=== PATIENT | male | born 1980 | race African-American/Black ===

== ENCOUNTER 2017-12-29 09:25 | Emergency (ER) | payer OTHER ==
[2017-12-29] MEDS: ADACEL/BOOSTRIX VACCINE (DIPHTH/PERTUSS/ACELL/TETANUS)0.5ML SYR (90715) IM (09:27)
[2017-12-29] MEDS: LIDOCAINE 2% W/EPIN INJ 20ML **PRES FREE INJ (09:27)
== END 2017-12-29 10:17 | disposition home or self-care (01) ==
LOC: M ED 09:25
DX: S61.411A Laceration without foreign body of right hand, initial encounter (principal); W26.0XXA Contact with knife, initial encounter; Y92.018 Other place in single-family (private) house as the place of occurrence of the external cause; Z79.899 Other long term (current) drug therapy
CPT/HCPCS: 90715

== ENCOUNTER 2020-02-08 06:20 | Emergency (ER) | payer OTHER ==
[~2020-02-08] VITALS: Ht 177.8 cm; Wt 111.4 kg
[~2020-02-08 06:20] MED LIST: CLAR10CA3 PO; TRAZ-252 PO; ZOLO25TA PO; ZOLO50TA PO
[2020-02-08] MEDS ORDERED: OMEP-221 (06:33)
[2020-02-08 07:04] LABS: HEMATOCRIT 46.4 % (42.0-52.0); HEMOGLOBIN 15.4 g/dl (13.5-17.5); MEAN CORPUSCULAR HEMOGLOBIN 28.4 pg (27.0-33.0); MEAN CORPUSCULAR HGB CONC 33.2 g/dl (32.0-36.5); MEAN CORPUSCULAR VOLUME 85.5 fl (80.0-96.0); PLATELET COUNT, AUTOMATED 296 10^3/uL (150-450); RED BLOOD COUNT 5.43 10^6/uL (4.30-6.10); WHITE BLOOD COUNT 7.6 10^3/uL (4.0-10.0)
[2020-02-08] MEDS ORDERED: LORazepam 2 MG TAB PO PRN (07:15)
[2020-02-08 07:20] LABS: AMPHETAMINES LEVEL URINE POSITIVE (NEGATIVE); BARBITURATES URINE NEGATIVE (NEGATIVE); BENZODIAZEPINES URINE NEGATIVE (NEGATIVE); CANNABINOIDS URINE NEGATIVE (NEGATIVE); COCAINE METABOLITE URINE POSITIVE (NEGATIVE); METHADONE URINE NEGATIVE (NEGATIVE); OPIATES URINE NEGATIVE (NEGATIVE); PHENCYCLIDINE URINE NEGATIVE (NEGATIVE)
[2020-02-08 07:34] LABS: ACETAMINOPHEN LEVEL < 2.0 UG/ML (10.0-30.0); ALBUMIN 4.1 GM/DL (3.2-5.2); ALT/SGPT 55 U/L (12-78); BILIRUBIN,DIRECT 0.1 MG/DL (0.0-0.2); BILIRUBIN,TOTAL 0.4 MG/DL (0.2-1.0); BLOOD UREA NITROGEN 10 MG/DL (7-18); CALCIUM LEVEL 8.7 MG/DL (8.5-10.1); CARBON DIOXIDE LEVEL 23 MEQ/L (21-32); CHLORIDE LEVEL 104 MEQ/L (98-107); CREATININE FOR GFR 1.02 MG/DL (0.70-1.30); ETHYL ALCOHOL (ETHANOL) 0.263 % (0.000-0.010); GLOMERULAR FILTRATION RATE > 60.0 (>60); GLUCOSE, FASTING 93 MG/DL (70-100); POTASSIUM SERUM 3.7 MEQ/L (3.5-5.1); SALICYLATE LEVEL 2.3 MG/DL (5.0-30.0); SODIUM LEVEL 139 MEQ/L (136-145); THYROID STIMULATING HORMONE 0.854 uIU/ML (0.358-3.740); TOTAL PROTEIN 8.1 GM/DL (6.4-8.2)
[2020-02-08] MEDS: THIAMINE 100 MG TAB PO SCH ×2 (08:32→21:00)
[2020-02-08] MEDS ORDERED: MULTIVITAMINS/MINERALS THERAP 1 TAB PO SCH (09:00)
[2020-02-08] MEDS ORDERED: FOLIC ACID 1 MG TAB PO SCH (09:00)
--- NOTE | 2020-02-08 19:35 | ECGEPIP ---
[facility] - ED Test Date: 2020-02-08 Pat Name: RAFA JIANG Department: Room: - Gender: Male Studio Grip: JTarsha : 1980 Requested By: Haris Meraz Order Number: [id number] Reading MD: Haris Meraz Measurements Intervals [place] Rate: 99 P: 43 ND: 140 QRS: -6 QRSD: 92 T: 11 QT: 340 QTc: 438 Interpretive Statements SINUS RHYTHM NONSPECIFIC ST T WAVE CHANGES CW 03/31/[address] T WAVE CHANGES Electronically Signed on 02-08-2020 19:35:20 EDT by Haris Meraz
[2020-02-08 21:26] VITALS: BP 142/98
== END 2020-02-08 21:27 ==
LOC: M ED 06:20
DX: R45.851 Suicidal ideations (principal); F32.9 Major depressive disorder, single episode, unspecified; Z91.5 Personal history of self-harm; F17.210 Nicotine dependence, cigarettes, uncomplicated; F19.10 Other psychoactive substance abuse, uncomplicated; F10.10 Alcohol abuse, uncomplicated; F43.10 Post-traumatic stress disorder, unspecified; Z79.899 Other long term (current) drug therapy
CPT/HCPCS: 36415; 80048; 80076; 80307; 84443; 85027; 93005; 99284; G0480

== ENCOUNTER 2020-11-10 22:14 | Inpatient (IN) | payer OTHER ==
[~2020-11-10] VITALS: Ht 177.8 cm; Wt 225.8 kg
[~2020-11-10 22:14] MED LIST changes: +OMEP-221
--- OUTSIDE RECORDS SUMMARY | 2020-11-10 22:18 | CCD ---
Author Author [facility] Organization [facility] Address Unknown Phone Unavailable Care Team Providers Care Operational Risk Analyst Name Role Phone Edinson COATS MD Unavailable Unavailable Edinson COATS MD Unavailable Unavailable Edinson COATS MD Unavailable Unavailable Edinson COATS MD Unavailable Unavailable Edinson COATS MD Unavailable Unavailable Edinson COATS MD Unavailable Unavailable Edinson COATS MD Unavailable Unavailable Edinson COATS MD Unavailable Unavailable Edinson COATS MD Unavailable Unavailable Edinson COATS MD Unavailable Unavailable Edinson COATS MD Unavailable Unavailable Edinson COATS MD Unavailable Unavailable Edinson COATS MD Unavailable Unavailable Edinson COATS MD Unavailable Unavailable Edinson COATS MD Unavailable Unavailable Edinson COATS MD Unavailable Unavailable Edinson COATS MD Unavailable Unavailable PAULY R LEAH BRAVO Unavailable Unavailable PAULY R AHRITIKA BRAVO Unavailable Unavailable ELIZONDO, CATHOLIC MD Unavailable Unavailable ELIZONDO, CATHOLIC MD Unavailable Unavailable ELIZONDO, CATHOLIC MD Unavailable Unavailable ELIZONDO, CATHOLIC MD Unavailable Unavailable ELIZONDO, CATHOLIC MD Unavailable Unavailable ELIZONDO, CATHOLIC MD Unavailable Unavailable ELIZONDO, CATHOLIC MD Unavailable Unavailable ELIZONDO, CATHOLIC MD Unavailable Unavailable Re-disclosure Warning The records that you are about to access may contain information from federally-assisted alcohol or drug abuse programs. If such information is present, then the following federally mandated warning applies: This information has been disclosed to you from records protected by federal confidentiality rules (42 CFR part 2). The federal rules prohibit you from making any further disclosure of this information unless further disclosure is expressly permitted by the written consent of the person to whom it pertains or as otherwise permitted by 42 CFR part 2. A general authorization for the release of medical or other information is NOT sufficient for this purpose. The Federal rules restrict any use of the information to criminally investigate or prosecute any alcohol or drug abuse patient.The records that you are about to access may contain highly sensitive health information, the redisclosure of which is protected by Article 27-F of the [facility] Public Health law. If you continue you may have access to information: Regarding HIV / AIDS; Provided by facilities licensed or operated by the [facility] Office of Mental Health; or Provided by the [facility] Office for People With Developmental Disabilities. If such information is present, then the following [facility] mandated warning applies: This information has been disclosed to you from confidential records which are protected by state law. State law prohibits you from making any further disclosure of this information without the specific written consent of the person to whom it pertains, or as otherwise permitted by law. Any unauthorized further disclosure in violation of state law may result in a fine or fci sentence or both. A general authorization for the release of medical or other information is NOT sufficient authorization for further disc losure. Allergies and Adverse Reactions Type Description Substance Reaction Status Data Source(s ) Drug Class NO KNOWN ALLERGIES NO KNOWN ALLERGIES [facility] Family History Family Member Name Family Member Gender Family Member Status Date o f Status Description Data Source(s) Unknown Unknown Problem [facility] ([facility] Unknown Unknown Encounters Encounter Providers Location Date Indications Data Source(s ) Inpatient Attender: MARIE Lee nder: LEAH COATS MDAdmitter: LEAH COATS MDReferrer: LEAH COATS MD [id number] 02/08/2020 12:00:00 AM EDT - 02/12/2020 01:06:00 PM EDT sucidial Ideations [facility] sucidial Ideations Patient discharged. Medications Medication Brand Name Start Date Product Form Dose Route Admi nistrative Instructions Pharmacy Instructions Status Indications Reaction Description Data Source(s) Ergocalciferol 82991 UNT Oral Capsule Vi tamin D (Ergocalciferol) 1.25 MG (66396 UT) Oral Capsule (ERGOCALCIFEROL) Vitamin D (Ergocalciferol) 1.25 MG (5000 0 UT) Oral Capsule (ERGOCALCIFEROL) 02/18/2020 12:00:00 AM EDT 82765 U Ora l active Take 1 capsule by mouth every 7 (seven) days [facility] Thiamine 100 MG Oral Tablet Thiamine HCl 100 MG Oral T ablet (B-1) Thiamine HCl 100 MG Oral Tablet (B-1) 02/13/2020 12:00:00 AM EDT 100 mg Oral active Take [facility]Beta Carotene Oral Tablet 7529-7043-03 02/13/2020 12:00: 00 AM EDT 1 {tbl} Oral active Take 1 tablet by mouth d [facility] Folic Acid 1 MG Oral Tablet Folic Acid 1 MG Oral Table t (FOLVITE) Folic Acid 1 MG Oral Tablet (FOLVITE) 02/13/2020 12:00:00 AM EDT 1 mg Oral active Take 1 tablet by mouth daily [facility] Hydrochlorothiazide 12.5 MG Oral Tablet hydroCHLOROthiazide 12.5 MG Oral Tablet (HYDRODIURIL) hydroCHLOROthiazide 12.5 MG Oral Tablet (HYDRODIURIL) 02/13/2020 12:00:00 AM EDT 12.5 mg Oral active Take 1 tablet by mouth daily [facility] Hydroxyzine Hydrochloride 50 MG Oral Tab let hydrOXYzine HCl 50 MG Oral Tablet (ATARAX) hydrOXYzine HCl 50 MG Oral Tablet (ATARAX) 02/12/2020 12:00: 00 AM EDT 50 mg Oral active Take 1 tablet by mouth every 6 (six) hours as needed for Anxiety (Sleep) for up to 10 days [facility] Ergocalciferol 36992 UNT Oral Capsule vi tamin D (ERGOCALCIFEROL) capsule 50,000 Units vitamin D (ERGOCALCIFEROL) capsule 50,000 Units 2019 09:15:00 AM EDT 25376 U Oral active 50,000 U nits, Oral, Every 7 days, First dose on Mon02/11/20 at 0915, For 30 days [facility] Medication administered onsite Hydrochlorothiazide 25 MG Oral Tablet hy drochlorothiazide (HYDRODIURIL) tablet 12.5 mg hydrochlorothiazide (HYDRODIURIL) tablet 12.5 mg 02/08 11:30:00 AM EDT 12.5 mg Oral active 12.5 mg, Oral, Daily Standard, First dose on 02/09/20 at 1130, For 30 days [facility] Medication administered onsite Sertraline 50 MG Oral Tablet sertraline (ZOLOFT) table t 50 mg sertraline (ZOLOFT) tablet 50 mg 02/09/2020 09:00:00 AM EDT 50 mg Oral active 50 mg, Oral, Daily Standard, First dose on 02/09/20 at 0900, For 30 days [facility] Medication administered onsite Folic Acid 1 MG Oral Tablet folic acid (FOLVITE) table t 1 mg folic acid (FOLVITE) tablet 1 mg 02/09/2020 09:00:00 AM EDT 1 mg Oral active 1 mg, Oral, Daily Standard, First dose on 02/09/20 at 0900, For 5 doses [facility] Medication administered onsite multivitamin tablet 1 tablet [id number] 02/09/2020 09:00:00 AM EDT 1 {tbl} Oral active 1 tablet, Oral , Daily Standard, First dose on 02/09/20 at 0900, For 30 days [facility] Medication administered onsite Thiamine 100 MG Oral Tablet thiamine (B-1) tablet 100 mg thiamine (B-1) tablet 100 mg 02/09/2020 09:00:00 AM EDT 100 mg Oral active 100 mg, Oral, Daily Standard, First dose on 02/09/20 at 0900, For 30 days [facility] Medication administered onsite pantoprazole 40 MG Delayed Release Oral Tablet pantoprazole (PROTONIX) EC tablet 40 mg pantoprazole (PROTONIX) EC tablet 40 mg 02/09/2020 12:00:00 AM E DT 40 mg Oral active 40 mg, Ora l, Before Breakfast, First dose (after last modification) on 02/09/20 at 0000, For 30 days [facility] Medication administered onsite Trazodone Hydrochloride 50 MG Oral Tablet trazodone (D ESYREL) tablet 50 mg trazodone (DESYREL) tablet 50 mg 02/09/2020 12:00:00 AM EDT 50 mg Oral active 50 mg, Oral, Nightly, First dose on 02/09/20 at 0000, For 30 days [facility] Medication administered onsite Hydroxyzine Hydrochloride 50 MG Oral Tablet hydrOXYzin e (ATARAX) tablet 50 mg hydrOXYzine (ATARAX) tablet 50 mg 02/08/2020 11:43:01 PM EDT 50 mg Oral active 50 mg, Oral, Every 6 hours PRN, Anxiety, Sleep, Starting 02/08/20 at 2343, For 30 days [facility] Medication administered onsite Aluminum Hydroxide 40 MG/ML / Magnesium Hydroxide 40 MG/ML / Simethicone 4 MG/ML Oral Suspension Alum & Mag Hydroxide-Simeth (MAALOX PLUS) 200-200-20 MG/5ML suspension 30 mL Alum & Mag Hydroxide-Simeth (MAALOX PLUS ) 200-200-20 MG/5ML suspension 30 mL 02/08/2020 11:42:43 PM EDT 30 mL Oral a ctive 30 mL, Oral, Every 4 hours PRN, Heartburn, Indigestion, Starting 02/08/20 at 2342, For 30 days
MDD 4
[facility] Medication administered onsite Magnesium Hydroxide 80 MG/ML Oral Suspen jane magnesium hydroxide (MILK OF MAGNESIA) 400 MG/5ML suspension 30 mL magnesium hydroxide (MILK OF MAGNESIA) 4 00 MG/5ML suspension 30 mL 02/08/2020 11:42:39 PM EDT 30 mL Oral active 30 mL, Oral, Daily PRN, Constipation, Starting 02/08/20 at 2342, For 30 days
If serum creatinine > 2 notify provider before administering.
[facility] Medication administered onsite acetaminophen (TYLENOL) tablet 650 mg 02/08/2020 11:42:32 PM EDT 650 mg Oral active [Order 1 Start ] Name: acetaminophen (TYLENOL) tablet 650 mg Signed Summary: 650 mg, Oral, Every 4 hours PRN, Mild Pain (Pain Scale Score 1-3), Headaches, Starting 02/08/20 at 2342, For 30 days
MDD 4
[Order 1 End] [Order 2 Start] Name: acetaminophen (TYLENOL) tablet 650 mg Signed Summary: 650 mg, Oral, Every 4 hours PRN, Moderate Pain (Pain Scale Score 4-6), Starting 02/08/20 at 2342, For 30 days
MDD 4
[Order 2 End] [Order 3 Start] Name: acetaminophen (TYLENOL) tablet 650 mg Signed Summary: 650 mg, Oral, Every 4 hours PRN, Severe Pain (Pain Scale Score 7-10), Starting 02/08/20 at 2342, For 30 days
MDD 4
[Order 3 End] [facility] Medication administered onsite Insurance Providers Payer name Policy type / Coverage type Policy ID Covered democrat ID Covered democrat's relationship to bertrand Policy Bertrand Plan Information MVP [id number] [id number] SP [id number] [employer] [id number] SP [id number] MVP I [id number] Self [id number] [employer] [id number] SP [id number] [employer]ARE [id number] SP [id number] VALUE OPTIONS (MVP) [id number] SP [id number] [facility] Health Care Commercial [id number] Self [id number] MVP Commercial Self [employer] HE[employer] C[employer] O [id number] S [id number] MVP Health Care Commercial Self [place] PHY [id number] SP [id number] SELF PAY UNAVAILABLE SP UNAVAILA BLE Problems, Conditions, and Diagnoses Code Display Name Description Problem Type Effective Dates Data Source(s) sucidial Ideations sucidial Ideations Diagnosis 0 11:32:45 PM EDT [facility] Surgeries/Procedures Procedure Description Date Indications Data Source(s) 25 HYDROXY INCLUDES FRACTIONS IF PERFORMED VITAMIN D 25 HYDROXY , TOTAL Routine 02/10/2020 11:09 AM EDT 02/10/2020 03:09:00 PM EDT [facility] Results ID Date Data Source [id number] [facility] Interpretation Code Description Data Amaris rce(s) Supporting Document(s) Discharge Summary [facility] BKFZVn4eZuEIApOb13/JQSwlOHOrm3EyOPxaNNy8UXzpYGFwZ3YrARC4uN4xHQG6LJwGPyLcDkGpWFT8 [facility] [file] D/Rpu4sOx+z5aNTcmS8ucugEDSDr/CHAIRMAN AND CEO+Sy5Y4gl7Rk [file] AwNzgwMyAwMDAwMCBuDQowMDAwMDExMzkwIDAwMDAw FI8HFcMqEOKhIDB1GDAmNCHsZCPxkz4OLKBsIXFbEYVjYnDtADJaTCInXAhnZZUpVFW9BsXsEQQqZQFr HE8FRcHhAUKyLCi0JMSwXZFaYQZrrx9BMJDiRUShBNC4NwStEYLdPYSpGJhsQKCxIUWhCkrvKAXgWXEq UT2RHlViWYEhWsT6YVdlBBWbLBEdbh8TCTDsXYJpPg VxJHNrNZUiKOFdRXyyDTMoPVE4EdPgQQSjWAScFZ6QMwJlJPStNlW2UsQgFYJpAFRwvv7SMDXaJHIwSS M4RiEdQBEtIATdRPvcOPToCQE0JDN4VDYpXKFcVO8ZFhVvCQAaHiNsQjGkOBByAJJknd7LISIoQCRqAE I0VIAsZSAwNMZiTXbvPZRvQWG1Sxc1CALuTVNfEU5L PkPdTYGhJalmMINpCWBjUFRypm3GGBDzTRYqKGT3EwAmXZEwAYPxEVsyHDXeMCDqNdUhMMPxYQBkJP3Z XrHaNTZsMNH4QIagKTDvZHTgrn7UKRLiXSI0LSLaDwTmIWEcTMBzIKvhSAJjBSAuKMbuROJvOYKkEP0Q VnAcRHLjUQF7TTZzIQAzTSYpmc0EBXNaPHI8GHb2UU GwZADdDADuAKalPVKaDFEySaC3IKGzEYMzKD4IRoHwQLNmPVV5SHYpYPXqOGWezf5FZQUqAJO7Btq8Cp TsHJOtUIPiCVosKALuJOH8UQQsUTLzUIFiJQ4PRaGkMJBsCHQzBfsrTOBoMQPabg8OJPXfBMX4HVEdFl EuTPRxPNYoWBbvLKAuTNF4EANyIRXtUJWnDZ1VQwTc PJFzKQD2TGxsCGPtUCRljh5WSQHaLHI0VbDrJVAbJKLzVVYyBEnrBSExNIT5YqF3IJKhIRNdZG8CCiVx VPIxKGI2IXnyZWBxMBQfzg5OGVIuTRI3APv2MdGoXJYaFFOvLSdmESRsFIMzRRp7ZEDlHRBsRZ6QQwBv SXTlWtDlNHOjSAOxIJSefw5VHYFdRHR8VrC6YgToHB BkTGXvUJxhDHMlUXEyWvg8ZVPuOHNpUD6HXiYbKTVuQyB3NGUrPHAbINJoyo2TZDHyPNB0QaG5IZZoKJ WjUPYyJElkRQXjENCwSzn0XPJgJEDyLY6MOySiIUYaDlDiYAChENQpJREgvc9GTEEcZPO6SQJdBBQgCN YxWPGpRNttLBZaFRZ7UbA5DCGmDIWrUZ3SOhMyXVFx QeJfGIvvMXFcCIBhen9KPCJxGOJ1IoU8QMIfKLEqATUgKTluQJKrHQR3KdB1GSBqSCIgPC1MMgQzYFNy NnX1JANgBVGpFVEjqw8IoECqyTkhdv6WGZxTUf9EnQveTFB9XIuoRj8pfGK7IUMdHAFPHa0DxwTtDOOu AOBTBAotEFZkAVF8FNPoTYt8LIDfY7KpTOIeXiI8LK ipIFLcGnO2HmJmNqB1VTVkNlK7FJYhEyP1BhP6QPClXaw7K1QqRRHmJLfnDRW+AK9lJOl+Pe0Gw4Dtxc Y8fsCbWCf4NzU3OF3JHXIJI5GKYx== ID Date Data Source [id number] 02/10/2020 01:46:40 PM EDT [facility] Name Value Range Interpretation Code Description Data Amaris rce(s) Supporting Document(s) Calcidiol [Mass/volume] in Serum or Plasma 13 ng/mL >30 L [facility] ID Date Data Source [id number] 02/09/2020 04:26:30 PM EDT [facility] Name Value Range Interpretation Code Description Data Amaris rce(s) Supporting Document(s) History and Physical [facility] PGAXCv3pBbPZIqXf40/WUHqbKVBjf9NjTLurOZb9NJmtTESwA3WcNJA9vF6oEBJ9GQuXRhOwQbYgLBJw lbm [file] NOU9syhCvOrl2y5JMpC3a+7RQ507RAZnMPWLcFAxNTXoq+8PPKAYIRKKr9+zatfabW5/manager labor relations/MW9jBx3N [file] AgICAgICAgICAgICAgICAgICAgICAgICAgICAgICAgICAgICAgICAgICAgICAgICAgICAgICAgICAgIC HwRVOxHYKxIDCgSXMxWY5TTDBsOVJmYEXiYLDwTSWf ICAgICAgICAgICAgICAgICAgICAgICAgICAgICAgICAgICAgICAgICAgICAgICAgICAgICAgICAgICAg LPQeRUOhWZBvAZRjEIEiJAOhSNWeRCFwSY5QTPSrNNPxLRQaBGTlWRPnSZWmABOoBIHfDDIjYWFmVLJz ICAgICAgICAgICAgICAgICAgICAgICAgICAgICAgIC DbIQRbRPZsCUQdQPHpCWRpIDXpVHOaHUZkNIUuLPEfWRRsUL1SZKTsXIYvQPSsVZZuALRqFVPeAWSeJH AgICAgICAgICAgICAgICAgICAgICAgICAgICAgICAgICAgICAgICAgICAgICAgICAgICAgICAgICAgIC AfQCLgPAAsYNMmHWElAWDqXK0GSMHoFBEeFUJoSWXx ICAgICAgICAgICAgICAgICAgICAgICAgICAgICAgICAgICAgICAgICAgICAgICAgICAgICAgICAgICAg JGAyGAOxILCfDVIxOSPfLGDlKWEwAMVvYIHpVA9RCBYjSILzKJDvXOGxHSTcJRDhNGVwBSTqHPLhBSLq ICAgICAgICAgICAgICAgICAgICAgICAgICAgICAgIC IpLYNnBFOaGJEfEBYuNJRqOLWaNLCkLWHcYAMcAYPkFAByOQJgEW7XULTkVSNrFOXoZNOkAHSlVWJfIE AgICAgICAgICAgICAgICAgICAgICAgICAgICAgICAgICAgICAgICAgICAgICAgICAgICAgICAgICAgIC VbPZWxRKPoKSOaYMNgBVPrRONjTR1YPBSvVTCjZRMp ICAgICAgICAgICAgICAgICAgICAgICAgICAgICAgICAgICAgICAgICAgICAgICAgICAgICAgICAgICAg EFZoMBHyYAAbJRTgRKPrYQSdDMRzATCjNEEdSFMqZP8SWSKoKGUjYVNmBQPoBFSmZKFsDVLkIRGsLLZi ICAgICAgICAgICAgICAgICAgICAgICAgICAgICAgIC OrBTJpCECsSOXxFIXjHUBuUICjWGXeWGMlDGMnMZCeUJGsMPLiXHOfHO4SEWZnGHXuJRIhFLHrVVZaUX AgICAgICAgICAgICAgICAgICAgICAgICAgICAgICAgICAgICAgICAgICAgICAgICAgICAgICAgICAgIC HoXWMbTPTbEQVrHRVwDPGnSMLoUEKqZL6FZY47kCOq y4D2BHWnZU8gwyr/Nr3APNygwoHkcLXzDQ2IJgGhMV2gnm4FRwIfNU0tim8KLPrYRtEeO2U3tCBbBYCq TYRFXrRwM56mGRccTh15IYnaOMGnGmGsNSi2Xq3LTbVoB7wmOKNgBnF2FVNzVnD4KOWtDdQ1UPBfGvMu ZQIbTBNnCHPkMUDNTHK6JDCzLxGjQmZdVKOnIHylBX ZFCLPhNQTzLiRgGcLjEILkLN7CDJBuU630bnEyAFKENn5+CDdgwiLiVknRRxD3QGBwe2WrKQa7LD2MXC KxNfngw5TfJYIbLHJZUFjrHF9UMAM1FMA8YKWsDx2CPREsI803onKoDH0VMx2AUbErRU7ary5HHGKtVX XmGvcADlv9ZIllHG0GkRBbTAeACpFeFpbrYX7ukOWU ULVhGJWfZK4JUIN4VCTeVy3vHRYoFMMbYlD6PFRFRU0OGXWqAEUvnQIjKQKiCJVBCP8YJSjnFTK9DQFr ceTenYIrRXyoBE0NRHKctqAdWOOpDUDIEVj+Yf4PHF3km9MpQGx0CvReJF0ljc1KFQdLPmLfJ1H7dNHn L9H5OLnzKl5CLZYvMQBzZBGbBNFOVVvrVW8HUI1bjc I8KD0HiRAzYXKmXRRieMAiYBm5Z68erPIxHVheLD1SIAQ+Tereza+Nu1AUXEbNYYoXOCwQrTtTAPONoJyD0 GxN8YFm0MeE4CrCV45uYbvwwBgYLfkGD1ROF3fWELgYIQPKJ4LhVXyiX2tneH2KZNqVHJBKrKmH21fsK BrHWSoYTLdOHZiJq3QZJDzZ2EeszFppIhhlfFaTVSv GMQAOM5YCTyshqTctILotAclTY59cRszNS5LMo1TCgAfGD1oxm5KwEKiIs6PZTT7Mu7MQGFpIOCmTYBc CGS5PALfWsEmAIchZGGjCLAvACM6QXJeASXoFR9GIyCvORJbYBl7PviuVPHkWNGmhv7UYIUpEMD0XJCh KrEcLAYdJEMiFGmcRBYiHPEdIDU1CHJrWJSnJD7JGl WeBTHpJUF1MUCrPFEyHVMshq2CEDJtCDWfZdM5WBAtFPQiMWMoTOxbGLTaTKY4TGwbRDMaOHMpQD9ZSx OzPKEtFLU8AFYsKDXdPCMnxt8FDAOpKWOmYNU3OVNlKNMxUIIvJDiuCRNjUIH4PGC1BGIsLYHiHB3QGb GbFXTyRJS4WFqyUZPfCPPfxw9LSSIzSNFgOqlxBpBz JQOmYWBoTQztSANfNGJ7BOXqQABsMWKdNG8LUoXwUHBrQGRiFsucGFDzTDAtgl1LHXFwUKSwFLW9BIXc QZWmHAAdFFliZABjKCHrOyj7HLEuLTXnXI3VWrUyFSJaLzN9PZpgIOIlIBBcjo7JYKCoYYSqICZ7UXZd MXBgRDCqGHluMKZxSAY7XfE4YFWxPFUvJP0TWcDhRV YlTvp3IpAxRUIoHPImuy9PXYWuBJFrXhO0ADDmMPOhVPUgNJarRRXcPMLvBcAaPCCuZYVpHK6HKfRbEB XoIlVyLEPhRFFhFDFulr7WRDOwFUSmMhCwPpPbGCPrPAYbNKviMCVvDEK0EiJ1WDAfXUWvOW4PXeBpQE IbWaP1WkRhYGLdEDOapj1KHIEfZSGhDPa7ZfHkONGj ALYxSXheBXWoKKL0BzJ7UBOzYRQtNA2XLeYbGNEmOyI0CFrdFRCpVEPzdf3HKUEgYGUtIqD0STBjOZJn DIEkTWjfLSKdGZJ6ILE1RUGpCWQvZV9HJqAfWBNbLgssYOQvINPgPODnkc3HZRXdDQDhQqUdPMArMAMs YNIbLHogXCKpTWI5TAL3LEUmVTWmET3PZfBuZWXiMD oyMIOwVIYjWQEkna8LQFRtOGK4TVO5DRXxBZWaCXZpMUuoHLAgMYQ5EjQ3ENQpAKQnAS5MJrNxBZMbFP j6PGCaKPZgNYWokc7LXLOuEJP1AKbeBEVjTLLtJLCkLSjqJODjZUEzRFZ9MJCpORYvJL5UBbBiWCUwTG IaLPXzCLJtTIXvnm4DCXQrSCB1JlC8IMSwHIXySLUe BWpfSBWlEBBbLbEwPFCvGVFmBE9XJnQbWNGxPPP5YrKlLDHiYMWsri6BNCFtWUU8McG7INRlQYLqGREj MKbjOZErNZU8MpFaMYTaCPDuVA9TEyIfZLMiJUl5HGknUKRrYJVqgb1TTBVbLDA9EMO3UEBbRVYzCTQy TYvuRDPtJFJ8RvE6MYUxFFGeYV8NEeYhTXWlRLw9Jv khXIBkYVYyvl7WIHAsVYA8ETK9JZTfTFDaFQLjTUmdCAGaCWF6JOY0GGBwWGPbAO0XMcUgNIWwAAauFY WwTRUdUDXjit8BPTJgRWA9ECi3SwIfKHGdJQLnKZomWTBkXSVjKTZ1XKQjRLWlXE4BUePwTOWdLhAbPM XaTKGgLERxkd9GmKUmvOsopb0NWOuYQg2RcZzxSQK9 HFbbHu5etVT1DqOcASDSVl2ErcLkDSIjPEAFPCskJHPgLJCvHkA5LRA3HbtwQUT9CTW7UeY1ETt3DPMi EMIyOEM8WbU2ENLtJTerWxbwUGYhUSvaUTMrBMolGrY6LnUlOdHpTPy+YD6zYMl+Wn9Sb9EyazE8niYg ZNq0GHI2RN8YBZZER5AMLm== ID Date Data Source [id number] 02/09/2020 04:26:15 PM EDT [facility] Name Value Range Interpretation Code Description Data Amaris e(s) Supporting Document(s) History and Physical [facility] BAOHLw9zMwFWDyLh37/XRPszJIYej7HaYQpqJJr0LWbsMZGvK6JiUXK1qF4wCFT7JZlBDlEtQdMaVMRq m [file] JqSOewWfZ1TD5AHYTNW0MVDm== Procedure Social History Code Duration Value Status Description Data Source(s ) Alcohol intake 02/09/2020 12:00:00 AM EDT Current drinker of al cohol (finding) completed Current drinker of alcohol (finding) [facility] Smoking 02/09/2020 12:00:00 AM EDT Unknown if ever smoked comp leted Unknown if ever smoked [facility] Vital Signs ID Date Data Source [id number] 02/12/2020 07:35:41 PM EDT [facility] Name Value Range Interpretation Code Description Data Source(s) WEIGHT RECORDED 231.1 lb 231.1 lb [facility] Body height Measured 70 in 70 in [facility]st [facility] Patient Treatment Plan of Care Planned Activity Planned Date Details Description Data Source (s) Ergocalciferol 58261 UNT Oral Capsule 02/18/2020 12:00:00 AM EDT [facility] Thiamine 100 MG Oral Tablet 02/13/2020 12:00:00 AM [facility] Tab-A-Ainyah/Beta Carotene Oral Tablet 02/13/2020 12:00:00 AM [facility] Hydrochlorothiazide 12.5 MG Oral Tablet 02/13/2020 12:00:00 AM [facility] Folic Acid 1 MG Oral Tablet 02/13/2020 12:00:00 AM [facility] Hydroxyzine Hydrochloride 50 MG Oral Tablet 02/12/2020 12:00:00 AM [facility] Hydroxyzine Hydrochloride 50 MG Oral Tablet 02/08/2020 11:43:01 PM [facility] Aluminum Hydroxide 40 MG/ML / Magnesium Hydroxide 40 MG/ML / Simethicone 4 MG/ML Oral Suspension 02/08/2020 11:42:43 PM [facility] Magnesium Hydroxide 80 MG/ML Oral Suspension 02/08/2020 11:42:39 PM [facility] acetaminophen (TYLENOL) tablet 650 mg 02/08/2020 11:42:32 PM [facility]
[2020-11-10] MEDS ORDERED: OMEP-221 PO (22:37)
[2020-11-11 00:23] LABS: HEMATOCRIT 44.8 % (42.0-52.0); HEMOGLOBIN 14.4 g/dl (13.5-17.5); MEAN CORPUSCULAR HEMOGLOBIN 27.3 pg (27.0-33.0); MEAN CORPUSCULAR HGB CONC 32.1 g/dl (32.0-36.5); PLATELET COUNT, AUTOMATED 339 10^3/uL (150-450); RED BLOOD COUNT 5.27 10^6/uL (4.30-6.10); WHITE BLOOD COUNT 4.8 10^3/uL (4.0-10.0)
[2020-11-11 00:45] LABS: AMPHETAMINES LEVEL URINE NEGATIVE (NEGATIVE); BARBITURATES URINE NEGATIVE (NEGATIVE); BENZODIAZEPINES URINE NEGATIVE (NEGATIVE); CANNABINOIDS URINE NEGATIVE (NEGATIVE); COCAINE METABOLITE URINE NEGATIVE (NEGATIVE); METHADONE URINE NEGATIVE (NEGATIVE); OPIATES URINE NEGATIVE (NEGATIVE); PHENCYCLIDINE URINE NEGATIVE (NEGATIVE)
[2020-11-11 01:02] LABS: ACETAMINOPHEN LEVEL < 2.0 UG/ML (10.0-30.0); ALBUMIN 3.7 GM/DL (3.2-5.2); ALT/SGPT 33 U/L (12-78); BILIRUBIN,DIRECT 0.1 MG/DL (0.0-0.2); BILIRUBIN,TOTAL 0.3 MG/DL (0.2-1.0); BLOOD UREA NITROGEN 6 MG/DL (7-18); CALCIUM LEVEL 8.6 MG/DL (8.5-10.1); CARBON DIOXIDE LEVEL 25 MEQ/L (21-32); CHLORIDE LEVEL 114 MEQ/L (98-107); CREATININE FOR GFR 1.06 MG/DL (0.70-1.30); ETHYL ALCOHOL (ETHANOL) 0.144 % (0.000-0.010); GLOMERULAR FILTRATION RATE > 60.0 (>60); GLUCOSE, FASTING 79 MG/DL (70-100); POTASSIUM SERUM 3.8 MEQ/L (3.5-5.1); SALICYLATE LEVEL < 1.7 MG/DL (5.0-30.0); SODIUM LEVEL 147 MEQ/L (136-145); THYROID STIMULATING HORMONE 0.276 uIU/ML (0.358-3.740); TOTAL PROTEIN 7.2 GM/DL (6.4-8.2)
[2020-11-11 01:27] LABS: RSV AMPLIFICATION NEGATIVE (NEGATIVE)
--- OUTSIDE RECORDS SUMMARY | 2020-11-11 01:48 | CCD ---
Author Author [facility] Organization [facility] Address Unknown Phone Unavailable Care Team Providers Care Assistant Commissioner Name Role Phone Edinson COATS MD Unavailable [...] Edinson COATS MD Unavailable Unavailable PAULY R AHRITIKA BRAVO Unavailable Unavailable PAULY R AHRITIKA BRAVO Unavailable Unavailable ELIZONDO, MOSQUE MD Unavailable Unavailable ELIZONDO, MOSQUE MD Unavailable Unavailable ELIZONDO, MOSQUE MD Unavailable Unavailable ELIZONDO, MOSQUE MD Unavailable Unavailable ELIZONDO, MOSQUE MD Unavailable Unavailable ELIZONDO, MOSQUE MD Unavailable Unavailable ELIZONDO, MOSQUE MD Unavailable Unavailable ELIZONDO, MOSQUE MD Unavailable Unavailable Re-disclosure Warning The records [...] is protected by Article 27-F of the [facility] Public Health law. If you continue you may have access to information: Regarding HIV / AIDS; Provided by facilities licensed or operated by the [facility] Office of Mental Health; or Provided by the [facility] Office for People With Developmental Disabilities. If such information is present, then the following [facility] mandated warning applies: This information has [...] law may result in a fine or skilled nursing sentence or both. A general authorization for the release of medical or other information is NOT sufficient authorization for further disc losure. Allergies and Adverse Reactions Type Description Substance Reaction Status Data Source(s ) Drug Class NO KNOWN ALLERGIES NO KNOWN ALLERGIES [facility] Family History Family Member Name Family Member [...] - 02/12/2020 01:06:00 PM EDT sucidial Ideations [facility] sucidial Ideations Patient discharged. Medications Medication Brand Name Start Date Product Form Dose Route Admi nistrative Instructions Pharmacy Instructions Status Indications Reaction Description Data Source(s) Ergocalciferol 50155 UNT Oral Capsule Vi tamin D (Ergocalciferol) 1.25 MG (82793 UT) Oral Capsule (ERGOCALCIFEROL) Vitamin D (Ergocalciferol) 1.25 MG (5000 0 UT) Oral Capsule (ERGOCALCIFEROL) 02/18/2020 12:00:00 AM EDT 78585 U Ora l active Take 1 capsule by mouth every 7 (seven) days [facility] Thiamine 100 MG Oral Tablet Thiamine HCl 100 MG Oral T ablet (B-1) Thiamine HCl 100 MG Oral Tablet (B-1) 02/13/2020 12:00:00 AM EDT 100 mg Oral active Take 1 [facility]-A-An[facility]/Beta Carotene Oral Tablet 7586-7848-35 02/13/2020 12:00: 00 AM EDT 1 {tbl} Oral active Take 1 tablet by mouth d [facility] Folic Acid 1 MG Oral Tablet Folic Acid 1 MG Oral Table t (FOLVITE) Folic Acid 1 MG Oral Tablet (FOLVITE) 02/13/2020 12:00:00 AM EDT 1 mg Oral active Take 1 tablet by mouth daily [facility] Hydrochlorothiazide 12.5 MG Oral Tablet hydroCHLOROthiazide 12.5 MG Oral Tablet (HYDRODIURIL) hydroCHLOROthiazide 12.5 MG Oral Tablet (HYDRODIURIL) 02/13/2020 12:00:00 AM EDT 12.5 mg Oral active Take 1 tablet by mouth daily [facility] Hydroxyzine Hydrochloride 50 MG Oral Tab let hydrOXYzine HCl 50 MG Oral Tablet (ATARAX) hydrOXYzine HCl 50 MG Oral Tablet (ATARAX) 02/12/2020 12:00: 00 AM EDT 50 mg Oral active Take 1 tablet by mouth every 6 (six) hours as needed for Anxiety (Sleep) for up to 10 days [facility] Ergocalciferol 00619 UNT Oral Capsule vi tamin D (ERGOCALCIFEROL) capsule 50,000 Units vitamin D (ERGOCALCIFEROL) capsule 50,000 Units 2019 09:15:00 AM EDT 65686 U Oral active 50,000 U nits, Oral, Every 7 days, First dose on Mon02/11/20 at 0915, For 30 days [facility] Medication administered onsite Hydrochlorothiazide 25 MG Oral Tablet hy drochlorothiazide (HYDRODIURIL) tablet 12.5 mg hydrochlorothiazide (HYDRODIURIL) tablet 12.5 mg 02/08 11:30:00 AM EDT 12.5 mg Oral active 12.5 mg, Oral, Daily Standard, First dose on 02/09/20 at 1130, For 30 days [facility] Medication administered onsite Sertraline 50 MG Oral Tablet sertraline (ZOLOFT) table t 50 mg sertraline (ZOLOFT) tablet 50 mg 02/09/2020 09:00:00 AM EDT 50 mg Oral active 50 mg, Oral, Daily Standard, First dose on 02/09/20 at 0900, For 30 days [facility] Medication administered onsite Folic Acid 1 MG Oral Tablet folic acid (FOLVITE) table t 1 mg folic acid (FOLVITE) tablet 1 mg 02/09/2020 09:00:00 AM EDT 1 mg Oral active 1 mg, Oral, Daily Standard, First dose on 02/09/20 at 0900, For 5 doses [facility] Medication administered onsite multivitamin tablet 1 tablet [id number] 02/09/2020 09:00:00 AM EDT 1 {tbl} Oral active 1 tablet, Oral , Daily Standard, First dose on 02/09/20 at 0900, For 30 days [facility] Medication administered onsite Thiamine 100 MG Oral Tablet thiamine (B-1) tablet 100 mg thiamine (B-1) tablet 100 mg 02/09/2020 09:00:00 AM EDT 100 mg Oral active 100 mg, Oral, Daily Standard, First dose on 02/09/20 at 0900, For 30 days [facility] Medication administered onsite pantoprazole 40 MG Delayed Release Oral Tablet pantoprazole (PROTONIX) EC tablet 40 mg pantoprazole (PROTONIX) EC tablet 40 mg 02/09/2020 12:00:00 AM E DT 40 mg Oral active 40 mg, Ora l, Before Breakfast, First dose (after last modification) on 02/09/20 at 0000, For 30 days [facility] Medication administered onsite Trazodone Hydrochloride 50 MG Oral Tablet trazodone (D ESYREL) tablet 50 mg trazodone (DESYREL) tablet 50 mg 02/09/2020 12:00:00 AM EDT 50 mg Oral active 50 mg, Oral, Nightly, First dose on 02/09/20 at 0000, For 30 days [facility] Medication administered onsite Hydroxyzine Hydrochloride 50 MG Oral Tablet hydrOXYzin e (ATARAX) tablet 50 mg hydrOXYzine (ATARAX) tablet 50 mg 02/08/2020 11:43:01 PM EDT 50 mg Oral active 50 mg, Oral, Every 6 hours PRN, Anxiety, Sleep, Starting 02/08/20 at 2343, For 30 days [facility] Medication administered onsite Aluminum Hydroxide 40 MG/ML [...] at 2342, For 30 days
MDD 4
[facility] Medication administered onsite Magnesium Hydroxide 80 MG/ML Oral Suspen jane magnesium hydroxide (MILK OF MAGNESIA) 400 MG/5ML suspension 30 mL magnesium hydroxide (MILK OF MAGNESIA) 4 00 MG/5ML suspension 30 mL 02/08/2020 11:42:39 PM EDT 30 mL Oral active 30 mL, Oral, Daily PRN, Constipation, Starting 02/08/20 at 2342, For 30 days
If serum creatinine > 2 notify provider before administering.
[facility] Medication administered onsite acetaminophen (TYLENOL) tablet 650 [...] 30 days
MDD 4
[Order 3 End] [facility] Medication administered onsite Insurance Providers Payer name Policy type / Coverage type Policy ID Covered constitution party ID Covered constitution party's relationship to bertrand Policy Bertrand Plan Information MVP [id number] SP [id number] [employer] [id number] SP [id number] MVP I [id number] Self [id number] [employer] C[employer] [id number] SP [id number] [employer] HE[employer] CARE [id number] SP [id number] VALUE OPTIONS (MVP) [id number] SP [id number] [place] [employer] Commercial [id number] Self [id number] MVP Commercial Self [employer] O [id number] S [id number] [place] [employer] Commercial Self [facility] PHY [id number] SP [id number] SELF PAY UNAVAILABLE SP UNAVAILA BLE Problems, Conditions, and Diagnoses Code Display Name Description Problem Type Effective Dates Data Source(s) sucidial Ideations sucidial Ideations Diagnosis 0 11:32:45 PM EDT [facility] Surgeries/Procedures Procedure Description Date Indications Data Source(s) 25 HYDROXY INCLUDES FRACTIONS IF PERFORMED VITAMIN D 25 HYDROXY , TOTAL Routine 02/10/2020 11:09 AM EDT 02/10/2020 03:09:00 PM EDT [facility] Results ID Date Data Source [id number] 02/12/2020 07:35:41 PM EDT [facility] Name Value Range Interpretation Code Description Data Amaris rce(s) Supporting Document(s) Discharge Summary [facility] CGVRTe7sFdJLFkMb40/IKWmeXSQji7QhVFxeOOx5WBnsTPLqW1RqRCA0gK8sDST5OHtTHsKbOdKdJJP3 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+Kc2E7ry1Zj [file] AwNzgwMyAwMDAwMCBuDQowMDAwMDExMzkwIDAwMDAw TN8WMeFmAEJqGUK6TNIsBMBnVGUslm9NSGMkNKUoERWsAlSsDFCzTXKgGGeoTLNaCTK1TxEeYJSuVVWs VZ4VMuDwDRImGDp3MWXuFWPeTBOpwr9IGIZrQVNsOIQ9PjQvXWJkRNVdZEdvMJWmRIDyPuxyWETmFWAz IU5MSwRhFIGmXvR3DWmjDACoNIQtll3SKQDgSCIuGo EyYNTmABImKWSjAViiMXSkQOU1DiKtPJAxHZSeIB1GTmSkFGPvSoU5IvWiEMOvLTPlsw6AIMLuTKKzFR L0IhEcICNqUYXpCHmsNJLbJPU7FJD7MCUlGLYnKC2ZCeByWIEuQhKqFbUrCSQhCEQool6HCNJhRHGwIR I6GWWeFOAiEBLuRWzsGPKtNAM8Czx7UKFxNJGqYN7L EiBhRWRtHlhgHINjZDXtRDKtvb6KAEJgAMJiSXX0LiSzJPHfEROwQHedMZSbMJFgIfBfZHMkWCHgUZ0W IlLaRIXpHJC4TOzhDNZlCEMnsi1TQWSkJIF1GJXjRiRzGTCpTOTnLSgaEIRvICRrLKyoGDKmDKEhMQ8B JyMeBHEaJSL5LDVtVAZxELZirs5DSIWvIJJ2IFm3QR TdXBSuPZHtNDcbPXExCKRoXxP5NEHfBLYrGT0TBaZmNGCqGEH3DBHnIFTzHACdpp8DJCAbCXE8Jft9Xx HmYCZdHWSoAKwaDSFmQRW4TPRuAGRbDLRkQZ7JVnWiXFIvHUOsPhodIZAbLZKxil1GYYWePUJ9WTWfKp RbYBCzATOsNIupTVSeGTI4WPBhBAMrYWZoZB0DGeJa KFNtGMX2AZsvMMPuRVWnyi4DXDOgQFY2VjXrOKQwUKLeMPRgAVjsJTTmGVK3IhI5PRVlKUIzTK1OCuGi FYUzHZV7PFliLRStVVWlqu6HKQQrMEI2JKx9XrErKKZpBNUpXUdzUMEpASAgSVb2UMIkMJZeXI8WLaPi KKJsZyLeWFPcRBWgOQTrij4VVLFwPXG9VrN8JrZjDT CpHJEmNOrhOZUqKAYuVbn9JRIhHTPtEJ2SEaYgKRNsDqB1LNNdGWVsGLGkxb3JRZAuXDG3UvG0QVIlNO SaJILgFDshEDGcVZLvOoa2CRMwBXSkIH6LErSrRSKpFgBiRWIhJAGwMZXttx5CSHMiJSK6ZJYtAIKxHI BkGNPpBNxjTPKjGZV4JuH1AIAdPQUiXK0JMrJtNZJp DhXpJGtyGATbPDHvnn7ZHMDjCCW1WzN7CEPcPJXzFESzXMetYCStFMP0LcI7MKPmWGXjLY0RWpMoQDZh JjM6HFAzULSsVXQapi9MvAEphEkygb8OOIaWOy9TlFgoGMF4AOziEg7nfZU1CAWlFULZCw8HfoJcQKYs BWCEUKujDTXoPZE6LZEwILg7JQHfJ9DbKGKlWbQ3BA ngGGOjSkE1JoHpFnI0VVKnYdJ5KUUtBsB3GfU6XXLiXrv3H9NdLOJsKOfxULE+TI7nDNa+De3Ix3Narq Z1doXkSOl3MeT6AP8XSNFMU0VLZs== ID Date Data Source [id number] 02/10/2020 01:46:40 PM EDT [facility] Name Value Range Interpretation Code Description Data Amaris rce(s) Supporting Document(s) Calcidiol [Mass/volume] in Serum or Plasma 13 ng/mL >30 L [facility] ID Date Data Source [id number] 02/09/2020 04:26:30 PM EDT [facility] Name Value Range Interpretation Code Description Data Amaris rce(s) Supporting Document(s) History and Physical [facility] UYRBZb7fWtLFCtCu40/ZBHcwGSKog0QbGNpmXDx5DPmhBPScI9CcPEF4uZ3nLXN9UOyEWbAkOiArAQQo lbm [file] TGH6znfQfLdg7e4UPbB3z+1NI764OOOaQHKVdBBkLDFfc+0PPTWZUOEPm3+zatfabW5/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/CP1yTl5X [file] AgICAgICAgICAgICAgICAgICAgICAgICAgICAgICAgICAgICAgICAgICAgICAgICAgICAgICAgICAgIC VhWNCdTALrCGDvEDZvDP6JHJMhLZLoBJBxVPBkGUCd ICAgICAgICAgICAgICAgICAgICAgICAgICAgICAgICAgICAgICAgICAgICAgICAgICAgICAgICAgICAg ESXtRPQdWPHeERUtZKArWZLkAJTiTSIzCN0PLKFnUSOyAPZdNVCaTMSjBUZhKQMjUIHuGRWkLEXkDPHz ICAgICAgICAgICAgICAgICAgICAgICAgICAgICAgIC UoROCxUMUuUHQqSISdXOOxSTIaIAGbWPAhHFTtIHMiVRSiCV5KXWPbENXeQYGqFMYjIRLlZQDlZZGdLP AgICAgICAgICAgICAgICAgICAgICAgICAgICAgICAgICAgICAgICAgICAgICAgICAgICAgICAgICAgIC HuXLFwRKAtEGEwWRGwKKYmSI9VDHWzQEHvQSLlUTCj ICAgICAgICAgICAgICAgICAgICAgICAgICAgICAgICAgICAgICAgICAgICAgICAgICAgICAgICAgICAg AJOhWVKdRCKrORNvTTKkZZMaFBCwDNKlXIRuWV2YVBZkPCLuZXFsMFHaLWJsNBKiSUBkCQQtHYDzFTOm ICAgICAgICAgICAgICAgICAgICAgICAgICAgICAgIC NzETLnWCOzMZUqAJIzGZUaQTJoADMuMRGmIKQqCFDaVDDoEZKrEC5VUENgDVXjKBRjXWTrHILdUUNiTG AgICAgICAgICAgICAgICAgICAgICAgICAgICAgICAgICAgICAgICAgICAgICAgICAgICAgICAgICAgIC WmDHNoTUNkWLZbRVInUYYtHLAlVL1XHIGuJBOvSBYx ICAgICAgICAgICAgICAgICAgICAgICAgICAgICAgICAgICAgICAgICAgICAgICAgICAgICAgICAgICAg YZPyXOQlSGOoEMAtJMUxLSNvRMHgBOGkJBFiELKaCS1LBHEjQVHsOZEoZORfMGKlORBwBCBsSVLnLRPd ICAgICAgICAgICAgICAgICAgICAgICAgICAgICAgIC SwRQUvZHXzPVSdVVPyQPUcZDZlMPBwUPEfRTKzXAKrIUDkFFBlDVEnIB6MOGTfWTYmSYScFBIqYYBhBF AgICAgICAgICAgICAgICAgICAgICAgICAgICAgICAgICAgICAgICAgICAgICAgICAgICAgICAgICAgIC QoOMIoAYEhJQUlRMHbJMMvQTNuACPoRY9SVU66ePVe e4E2EOXxUW5tmmr/Va3CHNpsgyXpoIWfVT8WDlFiXR4rsm1PFiGfIF6vfq9BKZoLNdOjO8J9qJFrIGPi PLVHXnNfK88yXXwiEc67KRkaOOFzMbDaXIp0Xv1WAdKxL3exNESmOnV7MGGkBdJ6SUKsDdE5IBLtJaDz PYPyRVOhCEZcWUEEUNN1UUTkLnDhNcAwNUPfVNqtGN LKWJKxUQGbLkJsBsNyJYHaVV9MZLBqB968ypQmSTAGZo2+RDpoafVkPnfRLgE9NNEph8WlYKg5EC6FWS RuNzers3SxPXUmLFENMDneTI6JFCK3SYZ3WNUsOo0OKNIcI356kqHgBG9CLc5EZyHiZG9stb1MNHOsUC XcQzbXTes0WXwqBO9IlJTjBLkBZaFbTnkdRO1vqAXZ MWUdYOYgEU5RDOB3NYThFk5uPVZlNVKrUlJ6FQNFWW2EXJZjVKOdfELnFNWhBEQQVT0HVRtkFWS1PLEz xwPahLTgQXicKD6QWECuaiGmNHAqRBQUMOt+Xh3IRZ1oj6TqGAb1UcNgFR7ebh8OXAbGJqRoX0O2tEOq S5J4SLjuRa8BVGSuOMZlSUReSVHYYGvgGF1DLK9ogn I0YN5WmQRcTZGvBICkwFJbUTs1C20tvNVpTFbzZV0UWMO+Tereza+Xf4KFYUzUANnNRVpVwPfFDYRWaKvV8 VaI2RIx7NlR1OaFB64qFlzldDsJRslKF1DMP3uRJYcOTHVCN6FxNGwsH8wxnT0WKUhYRYBToHrV85srF LbTQLhKRIyPDNmTl8HHNXsV7KvouPmkCyascHmDVAc TZBHYO9AWAglvqRdyNPkjIkiZD35fBueKM6TXz4SYuAyMP4pzd3IsUQaTk8ZTAE3Qf4VEFGkOIAcWDPz FMT8KLSzAsXvZQjePNYlGOWySCO0NGPlGZTkWU1ACyQpIINfSEa7KonuACZnUFBlhm0JGFRwZFZ2KUXc PuIxRCGhELDkXAflLRUqKOVkKYS4BSMeIDJnYM3HPk XoJWCgCHX0VUCxSPYbITNfgs0GQLEfIZUvFaS5CKJwYVFeJQEkMQblWAYkQMW8WMfoXEZxSKRzYA6FDd ArQLKaGEM8JLKjISTzHNHmmi8RRWUnZAOkMWF3OJOrYBStVWFwQSlmJZBiFCE1HYY0XHZoLUIsQJ5NGv NeBMYwOZB2PDqiRWTzYQTyyi3RHWMkOFDvYjxnVpMw NIUoLCXaHTpvXMTdLCZ5EZOyUQFuRDBxFH9ZDyVkDDSdLKMvQruyVEZdPNCfip0CZHAmDPXzJNT0TXVw XBAxOYEqOCncNMPxEDAyEmm0UNMzXBCjPO7PAaPhUNWoFoW6UBawHPJmRQHbcu2TBVIiPUXdNXJ3MIMy PODdIZHzMApjSTPfWWF3UaH0MIHeAUNvKN2DTtDkJE AqRji3SgSiTMKaIPUavw3IDUWcADHhWrR0OLIvYNSdTIPvDQliBIAyBOIbIcGcTIPwRPAvXG9RFpIiDE EyTqZwWXCbUVYgQMCyem1YXZXsGIPvYfXfXvLmHBJzXIMsPEjaPIJbJZH3MqJ4TQYfJGXlZO9XGvPhMD DiKlD3AfTnQIHdQYNgbn1OENPcHQPjONd0WnOnOPHz KRBqOFrnHWOvHIP5HtW4WADyTKKeOP4KBvWqEHLtOqQ9EBwjALAkSOEngb9NIXThUVCfMtY6RZRnQADb UUBcEJrkGJUsCAA5YAE9SSFuLRQwNW4NBsCsQXGjEzjcYHXuVCGwIVFvli6UCHPeHZBaXgQtVDIbDWQf TQQvNQkdYUChSZA5XUA4IYAmGQTkZR5JMzFrEHEyXV ukLYAxDSHtAACxub7RJKLaAAI2YLK8JPRxLCSzWVVnRFgbPTNqAFW2VaZ3EFGlBZZyNU8RJnRnZHVdHY h4FVYqHPNkKDIwkn5VRAWrYNF7NDghDUJyNFIaDLPfWIluCHFyPRAhTGZ8XXUkVKQzJK4DFkDsBTHbRZ AmEZKpKQWzDLKovb5KOYLcCVJ5BcL4UAKqSXAtNOIc UWjgLEZkMHCtJkYfOPLrQRUqJB8JUvVgAHHpZZG6AqIsBDIhTICcpc9NCZRxIDI2KgS2XZDbGHYjLDYp GLyaCBZhOKK5UcGoKHXtPZYcLV9DAbBbBDEhFPg5GMzjCCQmNTKvpg9HEKNbLCP6AGA6RPOuLXCjBZWt JVfiPFBdNOC6NdE8QTIsCGUpWI0JSlWlPSXhNGv6Tk isSZWzSPRksv6KJPSaQBY6ZDH3FOAfZVPxMBFiHZljYQOvQTG6ESE9CGIrZWMmTW3LFuEyEAOpQOdoNV MwHGTuBWGukv3QQGAtJXO0KGv9MqZqZBHqDNIuWGbkOVQmLOSmZPR3RCWsFOXqEW1ANzSsMGYlCxDjLF BwOIVdDPVdrg5KsAAvoXdsuw6PWZySPf4JvUubREP5 XSchVz9ogGN5WkNkOIOAFs3SgoGiLVDeQQZZRInaUWNzYLDwBpD1FEZ0QapnOQH2CHQ7KcM3SAs7QJAv YKLeJBN5IsM6FXHaBJsyYmwnBNAbHRwsDESrUUvqVaW2AwNrTyFnWDy+QC1vTBr+Ir8Ga5KtozH3khKo IGv5GOH5UR4YCKEVS6MJWt== ID Date Data Source [id number] 02/09/2020 04:26:15 PM EDT [facility] Name Value Range Interpretation Code Description Data Amaris rce(s) Supporting Document(s) History and Physical [facility] JREJOx4bCiLIEpUd51/FMZpyGOAto9ZfIIquQQb7ELnwJHBdH0BeVHM5lD3dJBL8OYlQEoTaIqTkFCCe lbm [file] [facility] [[email or web address]+p2G3YhQCPnEowMf2ZM3P2XBwxxiAVBRTofinqNRIYe3VZX/KKtVlY1Opxwr3pTE7NTrVMN2 [file] OyDBjfGjA2MO0KFQALC3UCUk== Procedure Social History Code Duration Value Status Description Data Source(s ) Alcohol intake 02/09/2020 12:00:00 AM EDT Current drinker of al cohol (finding) completed Current drinker of alcohol (finding) [facility] Smoking 02/09/2020 12:00:00 AM EDT Unknown if ever smoked comp leted Unknown if ever smoked [facility] Vital Signs ID Date Data Source [id number] 02/12/2020 07:35:41 PM EDT [facility] Name Value Range Interpretation Code Description Data Source(s) WEIGHT RECORDED 231.1 lb 231.1 lb [facility] Body height Measured 70 in 70 in [facility] Patient Treatment Plan of Care Planned Activity Planned Date Details Description Data Source (s) Ergocalciferol 58233 UNT Oral Capsule 02/18/2020 12:00:00 AM EDT [facility] Thiamine 100 MG Oral Tablet [facility]Beta Carotene Oral Tablet 02/13/2020 12:00:00 AM [facility] Hydrochlorothiazide 12.5 MG Oral Tablet 02/13/2020 12:00:00 AM [facility] Folic Acid 1 MG Oral Tablet 02/13/2020 12:00:00 AM [facility] Hydroxyzine Hydrochloride 50 MG Oral Tablet 02/12/2020 12:00:00 AM [facility] Hydroxyzine Hydrochloride 50 MG Oral Tablet 02/08/2020 11:43:01 PM [facility] Aluminum Hydroxide 40 MG/ML / Magnesium Hydroxide 40 MG/ML / Simethicone 4 MG/ML Oral Suspension 02/08/2020 11:42:43 PM [facility] Magnesium Hydroxide 80 MG/ML Oral Suspension 02/08/2020 11:42:39 PM [facility] acetaminophen (TYLENOL) tablet 650 mg 02/08/2020 11:42:32 PM [facility]
[2020-11-11] MEDS ORDERED: ACETAMINOPHEN TAB 650MG DOSE (2X325MG) PO PRN (02:15)
[2020-11-11] MEDS ORDERED: MAALOX 30 ML SUSP *UDC PO PRN (02:15)
[2020-11-11] MEDS ORDERED: MOM 30ML SUSPENSION UDC PO PRN (02:15)
--- OUTSIDE RECORDS SUMMARY | 2020-11-11 02:47 | CCD ---
Author Author [facility] Organization [facility] Address Unknown Phone Unavailable Care Team Providers Care Pump Tender Name Role Phone Edinson COATS MD Unavailable [...] PAULY R AHRITIKA BRAVO Unavailable Unavailable ELIZONDO, JEW MD Unavailable Unavailable ELIZONDO, JEW MD Unavailable Unavailable ELIZONDO, JEW MD Unavailable Unavailable ELIZONDO, JEW MD Unavailable Unavailable ELIZONDO, JEW MD Unavailable Unavailable ELIZONDO, JEW MD Unavailable Unavailable ELIZONDO, JEW MD Unavailable Unavailable ELIZONDO, JEW MD Unavailable Unavailable Re-disclosure Warning The records [...] is protected by Article 27-F of the [facility] Public Health law. If you continue you may have access to information: Regarding HIV / AIDS; Provided by facilities licensed or operated by the [facility] Office of Mental Health; or Provided by the [facility] Office for People With Developmental Disabilities. If such information is present, then the following [facility] mandated warning applies: This information has [...] law may result in a fine or fdc sentence or both. A general authorization for the release of medical or other information is NOT sufficient authorization for further disc losure. Allergies and Adverse Reactions Type Description Substance Reaction Status Data Source(s ) Drug Class NO KNOWN ALLERGIES NO KNOWN ALLERGIES [facility] Family History Family Member Name Family Member [...] - 02/12/2020 01:06:00 PM EDT sucidial Ideations [facility] sucidial Ideations Patient discharged. Medications Medication Brand Name Start Date Product Form Dose Route Admi nistrative Instructions Pharmacy Instructions Status Indications Reaction Description Data Source(s) Ergocalciferol 77487 UNT Oral Capsule Vi tamin D (Ergocalciferol) 1.25 MG (86973 UT) Oral Capsule (ERGOCALCIFEROL) Vitamin D (Ergocalciferol) 1.25 MG (5000 0 UT) Oral Capsule (ERGOCALCIFEROL) 02/18/2020 12:00:00 AM EDT 85392 U Ora l active Take 1 capsule by mouth every 7 (seven) days [facility] Thiamine 100 MG Oral Tablet Thiamine HCl 100 MG Oral T ablet (B-1) Thiamine HCl 100 MG Oral Tablet (B-1) 02/13/2020 12:00:00 AM EDT 100 mg Oral active Take 1 tablet [facility] mouth [facility] Tab-A-Aniy[facility]/Beta Carotene Oral Tablet 2680-6514-11 02/13/2020 12:00: 00 AM EDT 1 {tbl} Oral active Take 1 tablet by mouth d [facility] Folic Acid 1 MG Oral Tablet Folic Acid 1 MG Oral Table t (FOLVITE) Folic Acid 1 MG Oral Tablet (FOLVITE) 02/13/2020 12:00:00 AM EDT 1 mg Oral active Take 1 tablet by mouth daily [facility] Hydrochlorothiazide 12.5 MG Oral Tablet hydroCHLOROthiazide 12.5 MG Oral Tablet (HYDRODIURIL) hydroCHLOROthiazide 12.5 MG Oral Tablet (HYDRODIURIL) 02/13/2020 12:00:00 AM EDT 12.5 mg Oral active Take 1 tablet by mouth daily [facility] Hydroxyzine Hydrochloride 50 MG Oral Tab let hydrOXYzine HCl 50 MG Oral Tablet (ATARAX) hydrOXYzine HCl 50 MG Oral Tablet (ATARAX) 02/12/2020 12:00: 00 AM EDT 50 mg Oral active Take 1 tablet by mouth every 6 (six) hours as needed for Anxiety (Sleep) for up to 10 days [facility] Ergocalciferol 00014 UNT Oral Capsule vi tamin D (ERGOCALCIFEROL) capsule 50,000 Units vitamin D (ERGOCALCIFEROL) capsule 50,000 Units 2019 09:15:00 AM EDT 47587 U Oral active 50,000 U nits, Oral, Every 7 days, First dose on Mon02/11/20 at 0915, For 30 days [facility] Medication administered onsite Hydrochlorothiazide 25 MG Oral Tablet hy drochlorothiazide (HYDRODIURIL) tablet 12.5 mg hydrochlorothiazide (HYDRODIURIL) tablet 12.5 mg 02/08 11:30:00 AM EDT 12.5 mg Oral active 12.5 mg, Oral, Daily Standard, First dose on 02/09/20 at 1130, For 30 days [facility] Medication administered onsite Sertraline 50 MG Oral Tablet sertraline (ZOLOFT) table t 50 mg sertraline (ZOLOFT) tablet 50 mg 02/09/2020 09:00:00 AM EDT 50 mg Oral active 50 mg, Oral, Daily Standard, First dose on 02/09/20 at 0900, For 30 days [facility] Medication administered onsite Folic Acid 1 MG Oral Tablet folic acid (FOLVITE) table t 1 mg folic acid (FOLVITE) tablet 1 mg 02/09/2020 09:00:00 AM EDT 1 mg Oral active 1 mg, Oral, Daily Standard, First dose on 02/09/20 at 0900, For 5 doses [facility] Medication administered onsite multivitamin tablet 1 tablet [id number] 02/09/2020 09:00:00 AM EDT 1 {tbl} Oral active 1 tablet, Oral , Daily Standard, First dose on 02/09/20 at 0900, For 30 days [facility] Medication administered onsite Thiamine 100 MG Oral Tablet thiamine (B-1) tablet 100 mg thiamine (B-1) tablet 100 mg 02/09/2020 09:00:00 AM EDT 100 mg Oral active 100 mg, Oral, Daily Standard, First dose on 02/09/20 at 0900, For 30 days [facility] Medication administered onsite pantoprazole 40 MG Delayed Release Oral Tablet pantoprazole (PROTONIX) EC tablet 40 mg pantoprazole (PROTONIX) EC tablet 40 mg 02/09/2020 12:00:00 AM E DT 40 mg Oral active 40 mg, Ora l, Before Breakfast, First dose (after last modification) on 02/09/20 at 0000, For 30 days [facility] Medication administered onsite Trazodone Hydrochloride 50 MG Oral Tablet trazodone (D ESYREL) tablet 50 mg trazodone (DESYREL) tablet 50 mg 02/09/2020 12:00:00 AM EDT 50 mg Oral active 50 mg, Oral, Nightly, First dose on 02/09/20 at 0000, For 30 days [facility] Medication administered onsite Hydroxyzine Hydrochloride 50 MG Oral Tablet hydrOXYzin e (ATARAX) tablet 50 mg hydrOXYzine (ATARAX) tablet 50 mg 02/08/2020 11:43:01 PM EDT 50 mg Oral active 50 mg, Oral, Every 6 hours PRN, Anxiety, Sleep, Starting 02/08/20 at 2343, For 30 days [facility] Medication administered onsite Aluminum Hydroxide 40 MG/ML [...] at 2342, For 30 days
MDD 4
[facility] Medication administered onsite Magnesium Hydroxide 80 MG/ML Oral Suspen jane magnesium hydroxide (MILK OF MAGNESIA) 400 MG/5ML suspension 30 mL magnesium hydroxide (MILK OF MAGNESIA) 4 00 MG/5ML suspension 30 mL 02/08/2020 11:42:39 PM EDT 30 mL Oral active 30 mL, Oral, Daily PRN, Constipation, Starting 02/08/20 at 2342, For 30 days
If serum creatinine > 2 notify provider before administering.
[facility] Medication administered onsite acetaminophen (TYLENOL) tablet 650 [...] 30 days
MDD 4
[Order 3 End] [facility] Medication administered onsite Insurance Providers Payer name Policy type / Coverage type Policy ID Covered green party ID Covered green party's relationship to bertrand Policy Bert[employer] Plan Information MVP [id number] SP [id number] [employer] [id number] SP [id number] MVP I [id number] Self [id number] [employer] [id number] SP [id number] [employer] [id number] SP [id number] VALUE OPTIONS (MVP) [id number] SP [id number] [facility] Health Care Commercial [id number] Self [id number] MVP Commercial Self [employer] O [id number] S [id number] [facility] Health Care Commercial Self [facility] PHY [id number] SP [id number] SELF PAY UNAVAILABLE SP UNAVAILA BLE Problems, Conditions, and Diagnoses Code Display Name Description Problem Type Effective Dates Data Source(s) sucidial Ideations sucidial Ideations Diagnosis 0 11:32:45 PM EDT [facility] Surgeries/Procedures Procedure Description Date Indications Data Source(s) 25 HYDROXY INCLUDES FRACTIONS IF PERFORMED VITAMIN D 25 HYDROXY , TOTAL Routine 02/10/2020 11:09 AM EDT 02/10/2020 03:09:00 PM EDT [facility] Results ID Date Data Source [id number] 02/12/2020 07:35:41 PM EDT [facility] Name Value Range Interpretation Code Description Data Amaris rce(s) Supporting Document(s) Discharge Summary [facility] EPQDLc0dZhUHZsXx28/MMSsdRIPzd2HeLJvhMDh3QFzcXRSaT2IzDTS1tL5pJZM3FFuMCzEzYvHnSDM3 [facility] [file] D/Nnd0rBg+l6cLCnnG9srztIEYMv/CUSTOMER SERVICE REP+Ug2R7px0Jb [file] AwNzgwMyAwMDAwMCBuDQowMDAwMDExMzkwIDAwMDAw IN8PWgByCQAmDSU8FPNkNZGzPZRzxm7NLAOpURSjVXStQhWiPEQfONLwJMfxZDJkCMK4SaMsFSGnYOPx CB9DJyNvJKDfIQl5TLJkSAClPPKhpy7LVVRjHIZoHRT7DtLgGUJqDKPbGBeiEWZbZUCmLlyvVSVcRYUf AF6XYzKpQHOjGjX3KDksFPMbVAOphw1BQFAzGCLsZm FsDHLeCIOvNHTwUBldCMPxBUW2CaUtGRLnFRSqPF4RSeOsOJQvSmT8EvFkWAVgZWXnyx8BJXRuCQTfJJ H2CkCaWDVjLSLmZWmdDALqBLY5MLM3QKVfTWAtBH3TOlAoIVOlCbYxJnYpWCVvYNXsim3DEWTyJBSuCS M8JTQsZWOmNANxQOctVRUzFIF5Xdh1ZVGzCVYdXW5V ErVtHCMnPgudULGiCBRfQABwzy2TYQUvUXVtSDQ0HuKtTIRgDFAnBMjmKDNmKVSlOeCtVHHnNZRwCX8Z XzHwLCDpQOX4EQdoJLWaAVCozg7VOLRmNVX5AQMhRaYgFSYwQFUmUJjmYHYqNCEkPRfiLBZfMGVxXN2S HcJwBHEnGWR9RZDcLJBmSSBaeo5XBYWiGKJ0VEe5JV KuFAAbSYZbVRzkZOHhYNIoVmA3CCIgVGEaDP4VLxPhEIZlKUG8GFJyRWMnVPJswd2SMFMkXOJ1Quh6Rb YcJAHuBDFxOXsfRJMtGDS9ZVNoZWDnXWKmPK9FOtLaYBKvKYIbJgspEOThLWNnny3CKIJzWME5KBFyHq NwMHTnCCClAFypYEDaIDG2SXGiYFQnBXMrVO9SChJa YCYhGVO2HDsyJJMmOTJzlj6ZFABeNZB4JyVnOXVuXSPuTAUjFYabVOZiEZL4UfW8DUVyABDqMM0HHrAh VSJjXPS5JVneSXKoKIZtcf9DRRYnEXS7FVx7VmFzCHSpXAKhZRmhJKCbXEYiMEw9GHKjMWVyJU7NCvIz QSLxDxTaPHBcIYIeBYGdbt2OFJMeKVQ3RkO3XwJrUY KwDMGuYWgqINJfXMVhVfe2DWLlAJJtPO8JJqBmPJWqAxD6TAUfEHIpSJMsaf6RARBvRLX0DyJ7ZTGsGR CiNYTxJAwbKSBoPJFsWrf8YNOmFFAlOT6BGzCgRRJbIcNcLKAiPRPvENZiuq6BRJPuFJJ7XCVvPQUeRS DyQCGtOEkrYMIqCUL0YxM0PMWnSZUaHX4MJwJiMIFd IiSuFHqmALBxFMLkrr0EBBZrODI4UyF0VOUyFBHtMDGoKLybJQXxFOD3BmL8HFQuLCVdQH2UYfKvXTNk BxS6ZKIoRZXlITGgsu3NlUPfrUsaja3DRPpUFj2AbBycCLG2ZItpRr2xoQZ5CXAiQLDRLw4YqvFqFECh ABDQQOhmFXDeKQN3HRHzMJn0GDRlR0DvULUdUiH5PV ihWGRwYkC3IwUkEuL4YERrHcI5FGHxWlN4KzC8ZFCoHjc7S1KfGFWqHUpkVOZ+OQ9qQFx+Io4Mz7Hcmq P8khYoPLi1XdZ0QL1BURIRA5FIOd== ID Date Data Source [id number] 02/10/2020 01:46:40 PM EDT [facility] Name Value Range Interpretation Code Description Data Amaris rce(s) Supporting Document(s) Calcidiol [Mass/volume] in Serum or Plasma 13 ng/mL >30 L [facility] ID Date Data Source [id number] 02/09/2020 04:26:30 PM EDT [facility] Name Value Range Interpretation Code Description Data Amaris rce(s) Supporting Document(s) History and Physical [facility] TSTSEv4yHqAQItBr17/EIJmsHEZjx3GdAXehOJo0OIgrOZVjT7CnXLQ2dN5lVVM5MXoNZrVcRrJtAZJn lbm [file] QLC0zamWvOej2p6HZyH8e+1DK423MQWdUGQTrHDmMMNzc+0CWKTPCFPXg7+zatfabW5/certified juvenile probation officer/RR9zMc6A [file] AgICAgICAgICAgICAgICAgICAgICAgICAgICAgICAgICAgICAgICAgICAgICAgICAgICAgICAgICAgIC HpFBInMFJrLFAwLIRwZM2WOWDaWOEkNCYyUQBxDUYo ICAgICAgICAgICAgICAgICAgICAgICAgICAgICAgICAgICAgICAgICAgICAgICAgICAgICAgICAgICAg CSPpAFSzHLPxRUKyKDMeHVTuNGAjYQTiSM3WGGKgCDSiUBXyPYEkWRCzTWMhKMJlPVCzZYMcIQYrFJEz ICAgICAgICAgICAgICAgICAgICAgICAgICAgICAgIC PtWEAkREHlJRKnBGGwKLCsGWVuSBWdSURiFZSrLVOfGXOeDK9HLNAgPTRvCZOeJWEjXFFdMVNhOCEcIN AgICAgICAgICAgICAgICAgICAgICAgICAgICAgICAgICAgICAgICAgICAgICAgICAgICAgICAgICAgIC NiRZVaECXwLEDbBIGrZOHtLX3ANEFkTUTfBEUmYXYk ICAgICAgICAgICAgICAgICAgICAgICAgICAgICAgICAgICAgICAgICAgICAgICAgICAgICAgICAgICAg HSTqZEYwGZLySHYuPJMsWXOdDSEhQMFzLUZnYS3PQOTlKKZdSZPmHAJyFVZvKCJeMNWuCABwRJGwIJVn ICAgICAgICAgICAgICAgICAgICAgICAgICAgICAgIC BgXTYjMSOqIUDpDRNwXKAsVNXfSGGbZEQdPUDvURXiNOMmQADyZH9EXCHcCSUpPNGzTWJwOMExINSiQN AgICAgICAgICAgICAgICAgICAgICAgICAgICAgICAgICAgICAgICAgICAgICAgICAgICAgICAgICAgIC AvYKEpPYRkKJVdKYTsIMLmEVYmMW0YWZSaZDYtNQKe ICAgICAgICAgICAgICAgICAgICAgICAgICAgICAgICAgICAgICAgICAgICAgICAgICAgICAgICAgICAg KCUeZOItHQMlSPRuUCTsHMYgKCDeOMXbHUJtILIpKD6XCFYdDRDbSSXsRGVtOKEgRIQvQGVyEPKeILEz ICAgICAgICAgICAgICAgICAgICAgICAgICAgICAgIC GgAGLwIUXsALLdHKIzVRYwZMLxZBBqBDXeCITnVLRoHPGhKJZmWLNtXW6LFAGcVZRtGAIdDYAvHPLyLH AgICAgICAgICAgICAgICAgICAgICAgICAgICAgICAgICAgICAgICAgICAgICAgICAgICAgICAgICAgIC WeVLEzCWMfHGTlCXIdEHJkDZUmQATsGM3DBT75zIDp l9I9OHBnFW2sfol/Pc6ZLAttndFjxDDcTB2HXuJrBJ2deg3NFsPoYI8rzh8YMWuHHzBtM0Y5gZEvPEYk PPZYWeUyK35rVSyyId14GRahPMVaAyLeKVv8Pd6WItWsS7pcIAXhXeM3HQEdDeC9YMMuFsF2KASbDrRt OXChJWCfVDTnQDXUHMX7WTRdBqXaAgLdQZWtLEwuOC ZSVTMpPGObAqHsOdJuHUZiMP2QSROeJ668mfPeNJYLAi1+UUfzhnCiDnmLXbA3BNHth4MlJAq3FJ4QPI YvUlhbe9RdLXGrBAHBVCipRD0OXGW3RVH7ZNByPo9WHGCpY268eaHqJG0DRi0YPoEuAY9hye1ZJHOmWR SiDrnMFal0GJwkIL9WzDLxIZeIWbXdEkvdVQ6gnMKY NZYqYAPaJX9LQMR9FXTuVl8wGQHwUVWnNdW9VFFWWQ8HXWGbVNGhtWTfZIPnLPGHDI5RIMjxRFQ4NGDl qaSfsQVcFEiaEM4BNUPxgwBkBEJqOHANIBw+Qu0SRM7mt1VzGYx7JhPeUM4bmt5CXXrGKgDnZ7H9bUNt M3I6WOkwOx0KOHVlYQFcVHQoREWLIAraNH2LKH6vwn X1MO4YpZBmTNKsNDIjyQMcGJl7D43qvTRiPQfyJO2RIKF+Tereza+Ou4IOOUhNKXrTAHiNkKtSVPFIbFwI7 ZzT5BWz4TbP0RyDF33iWrifqLgDXaaWJ5TZL5qGBBvOEHYCG5XxCSzjZ3bakG5CDLvUFACReThM78cnR RjCCTpRCLkUDPwJp8DQNSeF1ZiefGdyHperkQbQQUe FSZRJX3CDRimnaRvaGFtjJcmMZ01bAtyNR4OYk2LAtZyTN1wnr8DbQToPl5IMLF8Vx7TIEShHSAlMHPe HFW0INWxNuBnEBweLTJdEMCbJFU0YUTxNKXeSO0ZFbCnHMYxVRz6NpqwPVXwCGTwff2HFMGdAVP6RPIn PwAxSDQeUTTtNKflQAItNJNnLGB4COGdHJEcWW5BGh WgFBHxNTY5EDHzAJFjRKIaue6UJMCzYMLeChL0EPDtGZMpRPJjFBpoWSWwIHR0HEjmNZUxXIRhJD3JKi TcNDUhMWQ3WTSeNTReWNWdza4XOIEvAQSyCAZ9NUHeFDQrJHUpQRivKDUrYIA0JTT5GQAtIGFmUI9YPi SoBLBdGFT6VLgeFUGxVYWtyv1SWQGnQTVjSqtvAjLt FPAyCEZnAUmyKXXiGGG4XZIhDFZeTZOnPD4FLkJpXGQwJPTjKeddWSVyWVZssz5AUQDsJKGdDOK0MVSv TVHcUWCxNWxhONWjQZBzNpi2WBZqVNGvAF0AZmXwZCZtXoX7LMcgCAYpSPFvdq5CTSSfROQyZRK5LOQu TSQaHEPzYIugHEMqKIL3TvT9JTBhQWFkNV9RAcMrOM PeXum6JsAgIVKpEEDryq1KFBOfHYOmJeK7SFMlJQGqLFQaQAqpYNUpROAsNrRkSJHaDTYtAA2PCbVeTV TeBfHaRZIvCEUiODMsjw4MYHVkVLGeXxUhFdJgPYZmUEIuWOpqGTOiSJW6SjF4JQPgUMVrGK0MHeHiZF RzRdE7DkShAQMxFAIikv9QZBZqAHZxYAc7WjYkCOIr EZJgLPcdHOZiDGS1PeA7UNJjLBYrXX4HFuIzLEBjOfX1PAbpAPLrHINiyx8JYNPpIZPoKeM0IRYuFJPo XNVxWWpuONWkPDX1RZS9RHMuMIKaKH7NBiRlVTGeMpdbVCMfBQZpVMZplv6MODUnARIwYzNyYELvYMPv WKRvSDbdWSZbHRD7KGH6KDIvEQEuNR8EWgDaICTxSP vlXKOiVLEdVRGszv3HZGIhTXU6HQU0KADmEFZvUDQpOUuxBQVoVCT1VnV1PATaOQHbDN1OUpYoYXLyHJ p0QGEoHUBsFGNdla1ABJLvJDL8ZZmiYWOaPBNqZGZcRBooGKAtDPBrOJY8SQKuWKSqAI2ZEqZeFAHgDZ HoOQVeYIEvLFGqnq5NMWGtBBU7GiR0UCJuRNVcMMXp OCrzVELwHDLpHhOkWOTzIJCqZG6UYfUoLAHqVLX3BiMkEYKhHKBiyd1VGFDiRTY3ZzK1TZGmDNFbNVDh URcaXIFrVKX2MqXjXYVrAAJjMQ4AKxGyPEZoTYz4WKtmFFEiJZWgol5EIKZcQYM8LZV6DAUiDVIlUMCv KCpbPBHlMMT1WzW2AKHhYNCzGH4XDiCaKQUiWXk6Mj mcWFJgDMVktc9WADEoNFL9KCB1FEPtWOKdTGHoWSujJNRoVZQ8KRA4NTBzCJYhYE0UVoOpINOmQKeuGM AcMTLmHCVhyo4YOQCaTLM9FYw8ZiHoAGBfNWBdVKwcADQzGOUmCMY6DUClRUZbBY2PAqRoENFlSmWjEB OdGGJuRADinq4GbUZqmHenrb6LSAhAUr2OmXvyZYN8 VLknOn0vrOM4UzIxLNASHm2RyfYjVLFdNJSYMQllCJFqOGMfYkE1AGR0YokpMSE5WLI8FgS2AAp3HEPh DEXjMRX3HzW6GPXgLSphQkcrWCVkWGumDIPsUZmhSsL6IzHvKzExTLl+LW2cQVr+Gl6Wj6LgmsU9okIy LFj0XTN9GN9UNTOGK8VSJm== ID Date Data Source [id number] 02/09/2020 04:26:15 PM EDT [facility] Name Value Range Interpretation Code Description Data Amaris rce(s) Supporting Document(s) History and Physical [facility] CFWOXc9mXfVQYaRi67/USMtzKVIar0KoEAidVRu4PNliQWIbB6BbXLD6hW7aJEW7VExUIcQtJvLhHOVe lbm [file] [facility]CErTxtFr8QF9A4LHiaftJDJCZkagcvWUJBf8JEA/OKoMdZ9Cnyvr5vMH7BTvTZK1 [file] EkAQwzBaZ6IH3DFUUTC0XJAw== Procedure Social History Code Duration Value Status Description Data Source(s ) Alcohol intake 02/09/2020 12:00:00 AM EDT Current drinker of al cohol (finding) completed Current drinker of alcohol (finding) [facility] Smoking 02/09/2020 12:00:00 AM EDT Unknown if ever smoked comp leted Unknown if ever smoked [facility] Vital Signs ID Date Data Source [id number] 02/12/2020 07:35:41 PM EDT [facility] Name Value Range Interpretation Code Description Data Source(s) WEIGHT RECORDED 231.1 lb 231.1 lb [facility] Body height Measured 70 in 70 in [facility]st [facility] Patient Treatment Plan of Care Planned Activity Planned Date Details Description Data Source (s) Ergocalciferol [id number] UNT Oral Capsule 02/18/2020 12:00:00 AM EDT [facility] Thiamine 100 MG Oral Tablet [facility]Beta Carotene Oral Tablet 02/13/2020 12:00:00 AM [facility] Hydrochlorothiazide 12.5 MG Oral Tablet 02/13/2020 12:00:00 AM [facility] Folic Acid 1 MG Oral Tablet 02/13/2020 12:00:00 AM [facility] Hydroxyzine Hydrochloride 50 MG Oral Tablet 02/12/2020 12:00:00 AM [facility] Hydroxyzine Hydrochloride 50 MG Oral Tablet 02/08/2020 11:43:01 PM [facility] Aluminum Hydroxide 40 MG/ML / Magnesium Hydroxide 40 MG/ML / Simethicone 4 MG/ML Oral Suspension 02/08/2020 11:42:43 PM [facility] Magnesium Hydroxide 80 MG/ML Oral Suspension 02/08/2020 11:42:39 PM [facility] acetaminophen (TYLENOL) tablet 650 mg 02/08/2020 11:42:32 PM [facility]
[2020-11-11 05:07] VITALS: BP 135/90
[2020-11-11 06:26] VITALS: BP 122/85
--- NOTE | 2020-11-11 10:56 | MHHPEPDOC ---
General Date Of Admission: Nov 10, 2020 Legal Status: 9.39 Chief Complaint "suicidal ideas" History of Present Illness HISTORY OF THE PRESENT ILLNESS: Patient is a 40 -year-old , male , who reports that before admission, he was having reoccurring suicidal thoughts while he was drinking alcohol. He states that he relapsed a couple months ago after being sober for "a few months." He reports that on October 08, his girlfriend of 7 years and his three kids told him they were going to a [employer] then never came home so he is unsure where they are. He states he has tried contacting her but she won't answer her phone so since 10/2020, he has been staying in his house "because I'm hoping they will come home." He states that he normally drinks a pint of gin per day but hasn't had any alcohol in his house so was drinking a bottle of import customs clearing agent per day. He states the suicidal thoughts started about a month ago and that hey only come when he is drunk. He reports, "normally they are just thoughts but this time I was actually going to do it." Dane states he was going to get a knife and cut his wrist but passed out in between and woke up 24 hours later. He states that he called the crisis hotline and the police came and brought him in. He denies any current suicidal thoughts at this time. Psychiatric Review of Systems Depression (2 or more weeks): depressed mood (reports depression, states he has been isolating since 10/2020), anhedonia (reports he has been in his apartment by himsef since about 10/2020), insomnia/hypersomnia (reports difficulites falling/staying asleep -reports maybe getting a couple hours per night ), feelings of worthlesness, decreased energy, difficulty concentrating, appetite changes (reports having a 30 pound weight loss in the last year. ), suicidal thoughts (denies any current, reports having frequent suicidal thougths before admission, states he has suicidal thoughts only when drinking, besides this past time he states he hasn't had plan or intent ) Olinda (4 or more days of): irritable/elevated mood ("possibly"), denies Psychosis: denies PTSD: history of trauma, nightmares and flashbacks (nightmares - about once to twice per week ) Anxiety: gen/non-specific anxiety ("randomly"), situational anxiety, stressor related anxiety, panic attacks ("not often") Anxiety/ 6 months or more of: easily fatigued Past Psychiatric History Previous Psychiatric Diagnosis: PTSD Previous Psychiatric Admissions: reports he was in rehab alcohol for 15 days at ("[facility] in [facility] about a year ago Suicide Attempts: - August 2020 - took an overdose of 30 trazodone - didn't report or receive tx Psychiatric Follow-up: - denies any psychiatric help or therapy - reports he sees a social security benefits interviewer biweekly through [facility] for substance abuse therapy Psychiatric medications: history - trazodone, zoloft - states "I don't know, I never really took it" Past Medical History Medical Problems GERD - used to take 40 mg daily hypertension Head Injury: No Seizures: No Hospitalizations: Yes (psychiatric admissoin about a year ago) Surgeries: No Family Medical/Psychiatric HX Medical Problems medical - maternal - hypertension, diabetes psychiatric - denies substance abuse - maternal grandfather - alcohol - sober x 3 years sucide attempts/completions - denies Psychiatric Disorders: No Addiction: Yes Suicide Attemps/Completions: No Addiction History nicotine (5-6 days ), alcohol, denies Social History Childhood: Patient states that he was raised by his mother, no siblings, grew up in [facility], atteded grade and highschool there, graduated high school, states he liked high school. 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 He sates he stayed in [place], and has been working and raising his children. He reports he got at age about age 30, has 3 kids (9,5,4). He reports he got a couple years ago and reports that his took the kids and he is unsure where they are, has had no contact with them. He states he is not close with his family. Abuse/Trauma: reports PTSD from combat involvement, denies any physica l, emotional, verbal, sexual abuse Current Living Situation: reports he lives alone in an apartment. 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 - states he has PTSD from this) Social Support: reports his social security benefits interviewer is supportive Legal: reports he was arrested 3 years ago, denies any convictions Marital: Mental Status Examination General Appearance: well groomed, appears stated age, hospital scubs/clothing Build: average Demeanor: average, other (somewhat restless) Eye Contact: average Activity: anxious Behavior: cooperative, restless Speech: clear, normal volume, reg/rate,rhythm,volume Mood: depressed Affect: flat, congruent, anxious Thought Process: logical/linear Thought Content (Delusions): none reported, denies SI, HI, AVH Thought Content (Other): none reported Thought Content (Aggressive): none reported Perception (Hallucinations): none reported Perception (Other): none reported Cognition (Impairment of): none reported Cognition(Intelligence Est.): average Oriented: Awake, Alert, Oriented times three Insight: fair Judgment: Fair Psychosis: Denies Diagnoses unspecified depressive disorder PTSD unspecified anxiety disorder alcohol use disorder adjustment disorder with depressed and anxious mood A-FIB/CHADSVASC A-FIB History Current/History of A-Fib/PAF?: No Current PO Anticoag Therapy: No Assessment Dane is a 40 year old male, who is agreeable to meet for the interview. In today's session, he appears depressed and initially guarded, not forthcoming with information. However, as the interview progressed, he was more open about his stressors, deperssive symptoms, and alcohol use. He is restless, appears to be visibly anxious. He states that his girlfriend of 7 years and the mother of his 3 children have been going through a lot of relationship stress and that on 10/08/21 she took the kids, told patient they were going to a [employer] democrat, but haven't returned. Since then, he states "i haven't really left my house, I have been waiting for them to come back." He states the girlfriend has not contacted him and he is unsure where they are staying. He states he has no supports or outpatient psychiatry/therapy but that he sees a social security benefits interviewer biweekly for his substance abuse problem. Dane states that he is not currently having any suicidal thoughts but that when he drinks he does have si, states "that's why I need to quit drinking." After completing the psychiatric review of systems, it is apparent that Dane has multiple anxiety and depressive symptoms, which has impaired his ability to function in his daily life. We discussed the benefits of starting an SSRI and patient is agreeable. He also states he would like to go to rehab and is hoping for bed to bed transfer. Dane says he has gone to rehab before for 15 days and was sober for some time after but doesn't believe the program was long enough. He states, "I'm glad I came here to get the help I need." Initial Treatment Plan 1. Patient was admitted on a [9.39] status. 2. Complete history was obtained. 3. With patients permission, family will be contacted and database will be expanded. 4. Patients medication regimen will be reviewed and changed accordingly. 5. Patient will be provided with protected environment. 6. Patient will be treated with individual, group, and milieu therapies. 7. Patient will receive supportive psych-education. 8. Discharge planning will commence immediately. 9. Outpatient follow-up treatment will be strongly recommended. 10. The initial treatment plan will focus initially on: * Depression. * Risk for suicide. * Management Plan Start zoloft 25 mg po daily, if patient tolerates will increase to 50 mg po daily on 11/12/20 Initiate [facility] protocol Will coordinate with order planner to start on referrals for rehab per patient request. ESTIMATED LENGTH OF STAY: 3-5 DAYS. TIME SPENT COUNSELING AND COORDINATING INITIAL CARE: 60 minutes. Vital Signs Vital Signs Date Time Temp Pulse Resp B/P (MAP) Pulse Ox O2 Delivery O2 Flow Rate FiO2 11/11/20 06:26 97.9 79 12 122/85 (97) 99 Room Air Laboratory Data 24H Labs Laboratory Tests 2 11/10/20 22:29: Nucleated Red Blood Cells % (auto) 0.0, Anion Gap 8, Glomerular Filtration Rate > 60.0, Calcium Level 8.6, Total Bilirubin 0.3, Direct Bilirubin 0.1, Aspartate Amino Transf (AST/SGOT) 23, Alanine Aminotransferase (ALT/SGPT) 33, Alkaline Phosphatase 122H, Total Protein 7.2, Albumin 3.7, Albumin/Globulin Ratio 1.1, Thyroid Stimulating Hormone (TSH) 0.276L, Salicylates Level < 1.7L, Urine Opiates Screen NEGATIVE, Urine Methadone Screen NEGATIVE, Acetaminophen Level < 2.0L, Urine Barbiturates Screen NEGATIVE, Urine Phencyclidine Screen NEGATIVE, Urine Amphetamines Screen NEGATIVE, Urine Benzodiazepines Screen NEGATIVE, Urine Cocaine Metabolite Screen NEGATIVE, Urine Cannabinoids Screen NEGATIVE, Ethyl Alcohol Level 0.144H 11/11/20 00:42: Coronavirus (COVID-19)(PCR) NEGATIVE, Influenza Type A (RT-PCR) NEGATIVE, Influenza Type B (RT-PCR) NEGATIVE, Respiratory Syncytial Virus (PCR) NEGATIVE CBC/BMP Laboratory Tests 11/10/20 22:29 Medications Scheduled Omeprazole (Omeprazole) 40 Mg Capsule.dr, 40 MG PO DAILY, (Reported) Allergies Coded Allergies: No Known Allergies (Unverified , 02/18/15) LEROY NAQVI NP Nov 11, 2020 10:56
[2020-11-11] MEDS ORDERED: LORazepam 2 MG TAB PO PRN (11:00)
[2020-11-11 11:37] VITALS: BP 142/92
[2020-11-11] MEDS: MULTIVITAMINS/MINERALS THERAP 1 TAB PO SCH (11:42)
[2020-11-11] MEDS: SERTRALINE HCL 25 MG TABLET PO SCH (11:42)
[2020-11-11] MEDS: THIAMINE 100 MG TAB PO SCH ×2 (11:43→21:14)
[2020-11-11] MEDS: FOLIC ACID 1 MG TAB PO SCH (11:43)
[2020-11-11] MEDS ORDERED: OMEPRAZOLE 20 MG CAP PO ONE (16:15)
--- NOTE | 2020-11-11 16:20 | HPEPDOC ---
[facility] Medical History & Physical Date of Admission Nov 10, 2020 Date of Service: Nov 11, 2020 History and Physical CHIEF COMPLAINT: Suicidal ideation HISTORY OF PRESENT ILLNESS: 40 yo male admitted for reoccurring suicidal thoughts while he was drinking alcohol. He states that he relapsed a couple months ago after being sober for "a few months." He notes social stressors involving his kids and girlfriend. He states that he normally drinks a pint of gin per day but hasn't had any alcohol in his house so was drinking a bottle of cafe server per day. He states the suicidal thoughts started about a month ago and that hey only come when he is drunk. He reports, "normally they are just thoughts but this time I was a ctually going to do it." His plan was to get a knife and cut his wrist. He states that he called the crisis hotline and the police came and brought him in. He denies any current suicidal thoughts at this time. PAST MEDICAL HISTORY: Denies As per records - possibly includes GERD and HTN. ALLERGIES: Please see below. REVIEW OF SYSTEMS: Negative except as per HPI. HOME MEDICATIONS: Please see below. PHYSICAL EXAMINATION: VITAL SIGNS: See below General: NAD, sitting comfortably in chair HEENT: NC/AT, EOMI Lungs: CTA B/L Heart: +S1S2, RRR Abd: soft, NT, +BS Ext: no edema LABORATORY DATA: See below. MICROBIOLOGY: Please see below. A/P: 40 year old male admitted to [facility] for suicidal ideation, with no known PMHx #SI - as per primary team #GERD - states he previously was taking a PPI but has stopped - and is without symptoms #HTN - continue to monitor - stable at this time #will obtain routine labs Thank you for this consultation. Please re-consult as needed. Vital Signs Vital Signs Date Time Temp Pulse Resp B/P (MAP) Pulse Ox O2 Delivery O2 Flow Rate FiO2 11/11/20 11:37 99 142/92 11/11/20 06:26 97.9 12 99 Room Air Laboratory Data Labs 24H Laboratory Tests 2 11/10/20 22:29: Nucleated Red Blood Cells % (auto) 0.0, Anion Gap 8, Glomerular Filtration Rate > 60.0, Calcium Level 8.6, Total Bilirubin 0.3, Direct Bilirubin 0.1, Aspartate Amino Transf (AST/SGOT) 23, Alanine Aminotransferase (ALT/SGPT) 33, Alkaline Phosphatase 122H, Total Protein 7.2, Albumin 3.7, Albumin/Globulin Ratio 1.1, Thyroid Stimulating Hormone (TSH) 0.276L, Salicylates Level < 1.7L, Urine Opiates Screen NEGATIVE, Urine Methadone Screen NEGATIVE, Acetaminophen Level < 2.0L, Urine Barbiturates Screen NEGATIVE, Urine Phencyclidine Screen NEGATIVE, Urine Amphetamines Screen NEGATIVE, Urine Benzodiazepines Screen NEGATIVE, Urine Cocaine Metabolite Screen NEGATIVE, Urine Cannabinoids Screen NEGATIVE, Ethyl Alcohol Level 0.144H 11/11/20 00:42: Coronavirus (COVID-19)(PCR) NEGATIVE, Influenza Type A (RT-PCR) NEGATIVE, Influenza Type B (RT-PCR) NEGATIVE, Respiratory Syncytial Virus (PCR) NEGATIVE CBC/BMP Laboratory Tests 11/10/20 22:29 Home Medications Scheduled Omeprazole (Omeprazole) 40 Mg Capsule.dr, 40 MG PO DAILY Allergies Coded Allergies: No Known Allergies (Unverified , 02/18/15) A-FIB/CHADSVASC A-FIB History Current/History of A-Fib/PAF?: No ALYSSA LORENZO MD Nov 11, 2020 16:20
--- NOTE | 2020-11-11 16:20 | HPEPDOC ---
General Date of Admission Nov 11, 2020 at 02:15 Date of Service: Nov 11, 2020 Chief Complaint The patient is a 40-year-old male admitted with a reason for visit of Unspecified Deprssive Disorder. Source: Patient Exam Limitations: No limitations Timing/Duration: Week(s) Severity: Moderate History of Present Illness Patient is 40 years old male with past medical history depression, anxiety, PTSD, GERD, suicidal attempts, hypertension presented to the hospital after suicidal ideation. He reports that before admission, he was having reoccurring suicidal thoughts while he was drinking alcohol. He states that he relapsed a couple months ago after being sober for "a few months." Patient denies fever, chills, nausea, vomiting diarrhea or dysuria Home Medications Scheduled Omeprazole (Omeprazole) 40 Mg Capsule.dr, 40 MG PO DAILY, (Reported) Allergies Coded Allergies: No Known Allergies (Unverified , 02/18/15) Past Medical History Medical History depression, anxiety, PTSD, GERD, suicidal attempts, hypertension Social History * Smoker: current smoker Alcohol: heavy Drugs: denies A-FIB/CHADSVASC A-FIB History Current/History of A-Fib/PAF?: No Current PO Anticoag Therapy: No Review of Systems Constitutional: Denies: Chills Eyes: Denies: Pain ENT: Denies: Head Aches Skin: Denies: Rash Pulmonary: Denies: Dyspnea Cardiovascular: Denies: Chest Pain Gastrointestinal: Denies: Nausea Genitourinary: Denies: Dysuria Endocrine: Denies: Polydipsia Musculoskeletal: Denies: Neck Pain Neurological: Denies: Weakness Psych: Reports: Anxiety, Depression Physical Examination General Exam: Positive: Alert, Cooperative Eye Exam: Positive: PERRLA ENT Exam: Positive: Atraumatic Neck Exam: Positive: Supple; Negative: JVD Chest Exam: Positive: Clear to auscultation Heart Exam: Positive: Rate Normal Telemetry: Positive: No significant arrhythmia Abdomen Exam: Positive: Normal bowel sounds Extremity Exam: Negative: Clubbing, Cyanosis Skin Exam: Positive: Nl turgor and temperature Neuro Exam: Positive: Strength at 5/5 X4 ext Psych Exam: Positive: Anxiety, Oriented x 3 Vital Signs Vital Signs Date Time Temp Pulse Resp B/P (MAP) Pulse Ox O2 Delivery O2 Flow Rate FiO2 11/11/20 11:37 99 142/92 11/11/20 06:26 97.9 12 99 Room Air Laboratory Data Labs 24H Laboratory Tests 2 11/10/20 22:29: Nucleated Red Blood Cells % (auto) 0.0, Anion Gap 8, Glomerular Filtration Rate > 60.0, Calcium Level 8.6, Total Bilirubin 0.3, Direct Bilirubin 0.1, Aspartate Amino Transf (AST/SGOT) 23, Alanine Aminotransferase (ALT/SGPT) 33, Alkaline Phosphatase 122H, Total Protein 7.2, Albumin 3.7, Albumin/Globulin Ratio 1.1, Thyroid Stimulating Hormone (TSH) 0.276L, Salicylates Level < 1.7L, Urine Opiates Screen NEGATIVE, Urine Methadone Screen NEGATIVE, Acetaminophen Level < 2.0L, Urine Barbiturates Screen NEGATIVE, Urine Phencyclidine Screen NEGATIVE, Urine Amphetamines Screen NEGATIVE, Urine Benzodiazepines Screen NEGATIVE, Urine Cocaine Metabolite Screen NEGATIVE, Urine Cannabinoids Screen NEGATIVE, Ethyl Alcohol Level 0.144H 11/11/20 00:42: Coronavirus (COVID-19)(PCR) NEGATIVE, Influenza Type A (RT-PCR) NEGATIVE, Influenza Type B (RT-PCR) NEGATIVE, Respiratory Syncytial Virus (PCR) NEGATIVE CBC/BMP Laboratory Tests 11/10/20 22:29 Assessment/Plan Patient is 40 years old male with past medical history depression, anxiety, PTSD, GERD, suicidal attempts, hypertension presented to the hospital after suicidal ideation. He reports that before admission, he was having reoccurring suicidal thoughts while he was drinking alcohol. He states that he relapsed a couple months ago after being sober for "a few months." Patient denies fever, chills, nausea, vomiting diarrhea or dysuria Problems (1) Suicidal ideation Status: Acute Problem Text: defer treatment to psych team (2) GERD (gastroesophageal reflux disease) Status: Chronic Problem Text: Protonix by mouth (3) Hypertension Status: Chronic Problem Text: Blood pressure currently under control Plan / VTE VTE Prophylaxis Ordered?: No VTE Exclusion Mechanical Proph: Low Risk for VTE ANGEL VALENZUELA DO Nov 11, 2020 16:20
[2020-11-11 16:33] VITALS: BP 137/93
[2020-11-11 17:54] VITALS: BP 137/93
[2020-11-11] MEDS: traZODone 50 MG TAB PO PRN (21:14)
[2020-11-12] VITALS (8 sets, daily range): BP systolic 140–158; BP diastolic 90–112
[2020-11-12] MEDS: SERTRALINE HCL 25 MG TABLET PO SCH (08:42)
[2020-11-12] MEDS: THIAMINE 100 MG TAB PO SCH ×2 (08:42→20:56)
[2020-11-12] MEDS: FOLIC ACID 1 MG TAB PO SCH (08:43)
[2020-11-12] MEDS: MULTIVITAMINS/MINERALS THERAP 1 TAB PO SCH (08:43)
[2020-11-12] MEDS: OMEPRAZOLE 20 MG CAP PO SCH (08:43)
--- NOTE | 2020-11-12 11:44 | MHIPNPDOC ---
[facility] Progress Note Progress Note DATE OF SERVICE: 11/12/20 HISTORY OF THE PRESENT ILLNESS: Patient is a 40 -year-old , male, who reports that before admission, he was having reoccurring suicidal thoughts while he was drinking alcohol. He states that he relapsed a couple months ago after being sober for "a few months." He reports that on October 08, his girlfriend of 7 years and his three kids told him they were going to a [employer] democrat then never came home so he is unsure where they are. He states he has tried contacting her but she won't answer her phone so since 10/2020, he has been staying in his house "because I'm hoping they will come home." He states that he normally drinks a pint of gin per day but hasn't had any alcohol in his house so was drinking a bottle of dividend deposit voucher clerk per day. He states the suicidal thoughts started about a month ago and that hey only come when he is drunk. He reports, "normally they are just thoughts but this time I was actually going to do it." Dane states he was going to get a knife and cut his wrist but passed out in between and woke up 24 hours later. He states that he called the crisis hotline and the police came and brought him in. He denies any current suicidal thoughts at this time. VITAL SIGNS: See below. CURRENT MEDICATIONS: See below. Mental Status Examination General Appearance: well groomed, appears stated age, hospital scubs/clothing Build: average Demeanor: average, other (somewhat restless) Eye Contact: average Activity: anxious Behavior: cooperative Speech: clear, normal volume, reg/rate,rhythm,volume Mood: depressed Affect: flat, congruent, anxious Thought Process: logical/linear Thought Content (Delusions): none reported, denies SI, HI, AVH Thought Content (Other): none reported Thought Content (Aggressive): none reported Perception (Hallucinations): none reported Perception (Other): none reported Cognition (Impairment of): none reported Cognition(Intelligence Est.): average Oriented: Awake, Alert, Oriented times three Insight: fair Judgment: Fair Psychosis: Denies Diagnoses unspecified depressive disorder PTSD unspecified anxiety disorder alcohol use disorder adjustment disorder with depressed and anxious mood ASSESSMENT Patient was agreeable to meet for the interview. Dane reports he is doing "good." He states he is still hoping to go to rehab and per planner chief, he was accepted into the same one he was at before and that they are hoping to have a bed available within the next few days. He rates depression 4-5/10 and anxiety 5/10, denies any cravings for alcohol, denies suicidal thoughts. He states he slept well using the trazodone last night and that appetite is adequate. He states he would like at least a couple of hours in between discharge and rehab to go home so he can pack a bag. MANAGEMENT PLAN: Continue all medications Will increase Zoloft to 50 mg po daily, as patient reports he was able to tolerate the 25 mg po daily, denies any issues or side effects TIME SPENT: 25 minutes. Vital Signs Vital Signs Date Time Temp Pulse Resp B/P (MAP) Pulse Ox O2 Delivery O2 Flow Rate FiO2 11/12/20 06:30 92 140/94 11/12/20 06:19 98.0 16 97 Room Air Current Medications Current Medications Medications (Trade) Dose Ordered Sig/Abram Route PRN Reason Start Time Stop Time Status Last Admin Dose Admin Acetaminophen (Tylenol Tab) 650 mg Q6HP PRN PO HEADACHE or DISCOMFORT 11/11/20 02:15 Al Hydrox/Mg Hydrox/Simethicone (Mylanta) 30 ml Q4HP PRN PO HEARTBURN/INDIGESTION 11/11/20 02:15 11/11/20 10:39 Folic Acid (Folic Acid) 1 mg DAILY PO 11/11/20 09:00 11/12/20 08:43 Home Med (Med Rec Complete!) ASDIRECTED XX 11/10/20 22:45 11/10/20 22:41 DC Lorazepam (Ativan) 2 mg ASDIRECTED PRN PO SEE PROTOCOL 11/11/20 11:00 Magnesium Hydroxide (Milk Of Magnesia) 30 ml DAILYPRN PRN PO CONSTIPATION 11/11/20 02:15 Multivitamins (Theragram-M) 1 tab DAILY PO 11/11/20 09:00 11/12/20 08:43 Omeprazole (PriLOSEC) 40 mg DAILY PO 11/12/20 09:00 11/12/20 08:43 Sertraline HCl (Zoloft) 25 mg DAILY PO 11/11/20 09:00 11/12/20 08:42 Thiamine HCl (Thiamine HCl) 100 mg BID PO 11/11/20 09:00 11/13/20 21:01 11/12/20 08:42 Trazodone HCl (Desyrel) 50 mg QHSP PRN PO INSOMNIA 11/11/20 02:15 11/11/20 21:14 Allergies Coded Allergies: No Known Allergies (Unverified , 02/18/15) LEROY NAQVI NP Nov 12, 2020 11:43
[2020-11-12] MEDS: traZODone 50 MG TAB PO PRN (20:56)
[2020-11-12] MEDS ORDERED: LORazepam 1 MG TAB PO ONE (22:15)
[2020-11-13 06:33] VITALS: BP 135/96
[2020-11-13 06:35] VITALS: BP 135/96
[2020-11-13] MEDS: OMEPRAZOLE 20 MG CAP PO SCH (08:16)
[2020-11-13] MEDS: FOLIC ACID 1 MG TAB PO SCH (08:16)
[2020-11-13] MEDS: THIAMINE 100 MG TAB PO SCH ×2 (08:16→20:36)
[2020-11-13] MEDS: MULTIVITAMINS/MINERALS THERAP 1 TAB PO SCH (08:16)
[2020-11-13] MEDS: SERTRALINE HCL 50 MG TAB PO SCH (08:16)
--- NOTE | 2020-11-13 10:27 | MHIPNPDOC ---
[facility] Progress Note Progress Note DATE OF SERVICE: 11/13/20 HISTORY OF THE PRESENT ILLNESS: Patient is a 40 -year-old , male, who reports that before admission, he was having reoccurring suicidal thoughts while he was drinking alcohol. He states that he relapsed a couple months ago after being sober for "a few months." He reports that on October 08, his girlfriend of 7 years and his three kids told him they were going to a [employer] party then never came home so he is unsure where they are. He states he has tried contacting her but she won't answer her phone so since 10/2020, he has been staying in his house "because I'm hoping they will come home." He states that he normally drinks a pint of gin per day but hasn't had any alcohol in his house so was drinking a bottle of pay agent per day. He states the suicidal thoughts started about a month ago and that hey only come when he is drunk. He reports, "normally they are just thoughts but this time I was actually going to do it." Dane states he was going to get a knife and cut his wrist but passed out in between and woke up 24 hours later. He states that he called the crisis hotline and the police came and brought him in. He denies any current suicidal thoughts at this time. VITAL SIGNS: See below. CURRENT MEDICATIONS: See below. Mental Status Examination General Appearance: well groomed, appears stated age, hospital scrubs/clothing Build: average Demeanor: average, other (somewhat restless) Eye Contact: average Activity: anxious Behavior: cooperative Speech: clear, normal volume, reg/rate,rhythm,volume Mood: less depressed Affect: flat, congruent, mildly anxious Thought Process: logical/linear Thought Content (Delusions): none reported, denies SI, HI, AVH Thought Content (Other): none reported Thought Content (Aggressive): none reported Perception (Hallucinations): none reported Perception (Other): none reported Cognition (Impairment of): none reported Cognition(Intelligence Est.): average Oriented: Awake, Alert, Oriented times three Insight: fair Judgment: Fair Psychosis: Denies Diagnoses unspecified depressive disorder PTSD unspecified anxiety disorder alcohol use disorder adjustment disorder with depressed and anxious mood ASSESSMENT Patient was awaken for the interview. In today's interview, patient is alert and oriented, pts dress is appropriate. Hygiene and grooming is well-kempt. Smiles on approach and is pleasant and engaged in the interview. Dane reports he is doing "good." Patient denies depression, anxiety, SI, HI, AH, VH. P He denies and is not observed with maximus, psychotic symptoms of delusions, bizarre thinking, obsessions, paranoia, ruminations illogical thoughts, flight of ideas or having poor insight and judgement. Patient is being interviewed by Rehab and he will be picked up by the Rehab and taken to his apartment for clothes. Patient can be discharged at any time, unit may call this provider for discharge orders should he need to leave over the weekend. MANAGEMENT PLAN: Continue all medications Discharge when he is able to go to Rehab TIME SPENT: 25 minutes. Vital Signs Vital Signs Date Time Temp Pulse Resp B/P (MAP) Pulse Ox O2 Delivery O2 Flow Rate FiO2 11/13/20 06:35 108 135/96 11/13/20 06:33 98.7 18 97 Room Air Current Medications Current Medications Medications (Trade) Dose Ordered Sig/Abram Route PRN Reason Start Time Stop Time Status Last Admin Dose Admin Acetaminophen (Tylenol Tab) 650 mg Q6HP PRN PO HEADACHE or DISCOMFORT 11/11/20 02:15 Al Hydrox/Mg Hydrox/Simethicone (Mylanta) 30 ml Q4HP PRN PO HEARTBURN/INDIGESTION 11/11/20 02:15 11/11/20 10:39 Folic Acid (Folic Acid) 1 mg DAILY PO 11/11/20 09:00 11/13/20 08:16 Home Med (Med Rec Complete!) ASDIRECTED XX 11/10/20 22:45 11/10/20 22:41 DC Lorazepam (Ativan) 2 mg ASDIRECTED PRN PO SEE PROTOCOL 11/11/20 11:00 Magnesium Hydroxide (Milk Of Magnesia) 30 ml DAILYPRN PRN PO CONSTIPATION 11/11/20 02:15 Multivitamins (Theragram-M) 1 tab DAILY PO 11/11/20 09:00 11/13/20 08:16 Omeprazole (PriLOSEC) 40 mg DAILY PO 11/12/20 09:00 11/13/20 08:16 Sertraline HCl (Zoloft) 25 mg DAILY PO 11/11/20 09:00 11/12/20 11:48 DC 11/12/20 08:42 Sertraline HCl (Zoloft) 50 mg DAILY PO 11/13/20 09:00 11/13/20 08:16 Thiamine HCl (Thiamine HCl) 100 mg BID PO 11/11/20 09:00 11/13/20 21:01 11/13/20 08:16 Trazodone HCl (Desyrel) 50 mg QHSP PRN PO INSOMNIA 11/11/20 02:15 11/12/20 20:56 Allergies Coded Allergies: No Known Allergies (Unverified , 02/18/15) LEROY NAQVI NP Nov 13, 2020 10:27
[2020-11-13] MEDS ORDERED: SERT50TA29 PO (12:27)
[2020-11-13] MEDS ORDERED: THIA100TA PO (12:27)
[2020-11-13] MEDS ORDERED: FOLI1TAB11 PO (12:27)
[2020-11-13] MEDS ORDERED: VITMTA PO (12:27)
--- NOTE | 2020-11-13 13:05 | MHDSPDOC ---
[facility] Discharge Summary Discharge Summary DATE OF ADMISSION: Nov 11, 2020 at 02:15 DATE OF DISCHARGE: DISCHARGE DIAGNOSES: Unspecified depressive disorder PTSD Unspecified anxiety disorder Alcohol use disorder, Moderate Use REASON FOR ADMISSION: Patient is a 40 -year-old Single, Unemployed, Domiciled, A frican [place], male, who reports that before admission, he was having reoccurring suicidal thoughts while he was drinking alcohol. He states that he relapsed a couple months ago after being sober for "a few months." He reports that on October 08, his girlfriend of 7 years and his three kids told him they were going to a [email or web address] then never came home so he is unsure where they are. He states he has tried contacting her but she won't answer her phone so since 10/2020, he has been staying in his house "because I'm hoping they will come home." He states that he normally drinks a pint of gin per day but hasn't had any alcohol in his house so was drinking a bottle of boat washer per day. He states the suicidal thoughts started about a month ago and that hey only come when he is drunk. He reports, "normally they are just thoughts but this time I was actually going to do it." Dane states he was going to get a knife and cut his wrist but passed out in between and woke up 24 hours later. He states that he called the crisis hotline and the police came and brought him in. He denies any current suicidal thoughts at this time. CONSULTANTS INVOLVED: See Medical H + P by Hospitalist TREATMENT AND PROGRESS ON THE UNIT: Patient was admitted to the [facility] on a 9.39 legal status he was afforded the following treatment modalities: 1) Individual Therapy 2) Group Therapy 3) Medication Management 4) Milieu Therapy 5) Safe Environment HOSPITAL COURSE: Patient was admitted to [facility] on a 9.39 legal status. He was cooperative with the admission, reporting depression and suicidal ideation while intoxicated. During this hospitalization he requested Rehab. Patient is agreeable to discharge to a Rehab that he has been to previously. Patient is medically clear and his psychiatric symptoms are stable. DISCHARGE ASSESSMENT: In today's interview, patient is alert and oriented, pts dress is appropriate. Hygiene and grooming is well-kempt. Agreeable on approach and is pleasant and engaged in the interview. Denies depression and anxiety. Denies suicidal and homicidal ideation, planning or intent. He denies and is not observed with maximus, psychotic symptoms of delusions, bizarre thinking, obsessions, paranoia, ruminations illogical thoughts, flight of ideas or having poor insight and judgement. Patient has normal mentation, declines further hospitalization on a voluntary status and meets criteria for discharge today. MENTAL STATUS EXAMINATION ON DISCHARGE: Patient is a 40 -year-old Single, Unemployed, Domiciled, , male, who reports that before admission, he was having reoccurring suicidal thoughts while he was drinking alcohol. He appears his stated age, hygiene and grooming is fair, maintains good eye contact Speech: Is fluid, conversant, normal rate, tone and volume Language skills are intact Thought processes including: linear and goal oriented Thought content: denies depression and anxiety. Denies suicidal/homicidal ideat ion, planning or intent. Abstract reasoning, and computation: fair Description of associations: denies, none observed Description of abnormal or psychotic thoughts: denies, none observed. Judgment: good Insight: good Orientation: alert and oriented to person, place, time and situation Recent and remote memory: intact Attention span and concentration: good Language: expansive Fund of knowledge: average Mood: Euthymic Mood Affect: Flat MEDICATIONS ON DISCHARGE: See Medication Reconciliation PLAN/FOLLOWUP ARRANGEMENTS: Follow up with be made by Rehab, patient is being transferred to Rehab this afternoon The amount of time spent in the coordination of care for this patient was approximately 25 minutes. Vital Signs/I&Os Vital Signs Date Time Temp Pulse Resp B/P (MAP) Pulse Ox O2 Delivery O2 Flow Rate FiO2 11/13/20 06:35 108 135/96 11/13/20 06:33 98.7 18 97 Room Air Medications Scheduled Folic Acid (Folic Acid) 1 Mg Tablet, 1 MG PO DAILY for Vitamin Replacement, #7 Multivitamins (Thera M Plus Tablet) 1 Each Tablet, 1 TAB PO DAILY for Vitamin Replacement, #7 Omeprazole (Omeprazole) 40 Mg Capsule.dr, 40 MG PO DAILY, (Reported) Sertraline HCl (Sertraline HCl) 50 Mg Tablet, 50 MG PO DAILY for Depression, #7 Thiamine Hcl (Vitamin B-1) 100 Mg Tablet, 100 MG PO BID for Vitamin Replacement, #7 Allergies Coded Allergies: No Known Allergies (Unverified , 02/18/15) LEROY NAQVI NP Nov 13, 2020 13:05
[2020-11-13 16:00] VITALS: BP 136/90
[2020-11-13] MEDS: traZODone 50 MG TAB PO PRN (20:36)
[2020-11-14 06:19] VITALS: BP 163/93
[2020-11-14] MEDS: SERTRALINE HCL 50 MG TAB PO SCH (07:45)
[2020-11-14] MEDS: FOLIC ACID 1 MG TAB PO SCH (07:45)
[2020-11-14] MEDS: OMEPRAZOLE 20 MG CAP PO SCH (07:45)
[2020-11-14] MEDS: MULTIVITAMINS/MINERALS THERAP 1 TAB PO SCH (07:45)
== END 2020-11-14 09:10 | disposition home or self-care (01) | DRG 754 ==
LOC: M ED 22:14 → M ED INP 11-11 02:15 → M PSY 11-11 03:22
PROVIDERS: ADMIT Psychiatry & Neurology Psychiatry; ATTEND Psychiatry & Neurology Psychiatry
DX: F32.9 Major depressive disorder, single episode, unspecified (principal); I10 Essential (primary) hypertension; R45.851 Suicidal ideations; F43.10 Post-traumatic stress disorder, unspecified; F41.9 Anxiety disorder, unspecified; F10.20 Alcohol dependence, uncomplicated; F17.200 Nicotine dependence, unspecified, uncomplicated; K21.9 Gastro-esophageal reflux disease without esophagitis; Z91.82 Personal history of military deployment; Z20.822 Contact with and (suspected) exposure to COVID-19; Z79.899 Other long term (current) drug therapy; Z63.5 Disruption of family by separation and divorce